=== PATIENT | female | born 1970 | race Caucasian/White ===

== ENCOUNTER 2017-11-11 03:24 | Inpatient (IN) | payer OTHER ==
[~2017-11-11] VITALS: Ht 167.6 cm; Wt 81.6 kg
[2017-11-11 03:32] VITALS: BP 131/67
[2017-11-11] MEDS ORDERED: IBUPROFEN600 MG ORAL (03:32)
[2017-11-11] MEDS ORDERED: TYLENOL650 MG/20. ORAL (03:32)
[2017-11-11] MEDS ORDERED: VITAMIN C500 M1 ORAL (03:32)
--- NOTE | 2017-11-11 03:59 | Emergency Room Report ---
History of Present Illness General Chief Complaint: Edema Source: Patient Present Illness HPI 47-year-old female, history of diabetes, lower extremity edema for one year, presenting with left leg wound. Patient states that she has had a left leg wound for the last 4 months however for the last 2 days became very red, with some wet drainage. Denies any fever chills. States that she has lower show any edema, she was once on water pills, but has not seen a doctor for one year. Allergies: Coded Allergies: AZITHROMYCIN (Verified Allergy, Unknown, 11/11/17) fever, seizure CELECOXIB (Verified Allergy, Unknown, 11/11/17) Heart palpitations CITRUS AND DERIVATIVES (Verified Allergy, Unknown, 11/11/17) uti GABAPENTIN (Verified Allergy, Unknown, 11/11/17) migraine [place] (Verified Allergy, Unknown, Rash, 11/11/17) PREGABALIN (Verified Allergy, Unknown, 11/11/17) migraine [place] (Verified Allergy, Unknown, 11/11/17) hayfever Patient History Past Medical History: see triage record Past Surgical History: none Pertinent Family History: none Last Menstrual Period: 10/03/17 Now: No : 1 Para: 0 Reviewed Nursing Documentation: PMH: Agreed; PSxH: Agreed Nursing Documentation-PMH Hx Asthma: Yes Hx Diabetes: Yes Review of Systems All Other Systems: negative except mentioned in HPI Physical Exam Vital Signs Date Time Temp Pulse Resp B/P (MAP) Pulse Ox O2 Delivery O2 Flow Rate FiO2 11/11/17 03:26 98.5 105 16 131/67 97 Room Air 98.4 Sp02 EP Interpretation: reviewed, normal General Appearance: alert, GCS 15, non-toxic, moderate distress Head: normocephalic, atraumatic Eyes: bilateral eye normal inspection, bilateral eye PERRL, bilateral eye EOMI ENT: normal ENT inspection, normal pharynx, normal voice, moist mucus membranes Neck: normal inspection, full range of motion, supple Respiratory: normal inspection, lungs clear, normal breath sounds, no respiratory distress, no retraction, no wheezing, speaking full sentences, chest symmetrical Cardiovascular #1: normal inspection, regular rate, rhythm, no edema, normal capillary refill Cardiovascular #2: 2+ radial (R), 2+ radial (L) Gastrointestinal: normal inspection, non tender, soft, non-distended, no guarding Musculoskeletal: other - Full range of motion all extremities, 2+ pitting edema bilateral lower extremity, left lower chimney with weeping wet wound on the left anterior tib-fib surface, surrounding erythema, there is no crepitus, equal size of bilateral calves Neurologic: normal inspection, alert, oriented x3, responsive, motor strength/ tone normal, sensory intact, normal gait, speech normal Psychiatric: normal inspection, judgement/insight normal, memory normal Skin: normal inspection, normal color, no rash, warm/dry, well hydrated, normal turgor Medical Decision Making Diagnostic Impression: Primary Impression: Cellulitis ER Course 47-year-old female with left lower extremity redness swelling and wet wound DDX: Cellulitis No crepitus / pain out of proportion / rapid spreading for concern for nec fasc Bilateral lower extremity edema, venous insufficiency, heart failure, less likely to be DVT, equal bilaterally Plan: Labs Antibiotics Anticipate admission ER course: Patient given fluids and antibiotics Disposition: Patient is to be admitted to [facility] D/W hospitalist Dr Lopes Please note that this Emergency Department Report was dictated using [employer] account representative technology software, occasionally this can lead to erroneous entry secondary to interpretation by the dictation equipment. EKG Diagnostic Results EP Interpretation: Yes Rate: normal Rhythm: NSR ST Segments: No acute changes ASA given to patient: No Rhythm Strip EP Interpretation: Yes Rate: 70 Rhythm: NSR, no PVCs, no ectopy Chest X-ray CXR: Ordered: Yes 1 view Indication: PAIN EP interpretation: Yes Interpretation: No consolidation, no effusion, no PTX, no acute cardiopulmonary disease Impression: No acute disease Electronically signed by Nicky Nagy MD Laboratory Tests Test 11/11/17 04:09 11/11/17 05:00 White Blood Count 10.1 K/UL (4.8-10.8) Red Blood Count 4.44 M/UL (4.20-5.40) Hemoglobin 13.4 G/DL (12.0-16.0) Hematocrit 39.0 % (37.0-47.0) Mean Corpuscular Volume 88 FL (80-99) Mean Corpuscular Hemoglobin 30.2 PG (27.0-31.0) Mean Corpuscular Hemoglobin Concent 34.3 G/DL (32.0-36.0) Red Cell Distribution Width 11.4 % (11.6-14.8) L Platelet Count 242 K/UL (150-450) Mean Platelet Volume 5.5 FL (6.5-10.1) L Neutrophils (%) (Auto) 64.4 % (45.0-75.0) Lymphocytes (%) (Auto) 26.7 % (20.0-45.0) Monocytes (%) (Auto) 7.2 % (1.0-10.0) Eosinophils (%) (Auto) 0.5 % (0.0-3.0) Basophils (%) (Auto) 1.3 % (0.0-2.0) Sodium Level 136 MMOL/L (136-145) Potassium Level 3.5 MMOL/L (3.5-5.1) Chloride Level 101 MMOL/L (98-107) Carbon Dioxide Level 28 MMOL/L (21-32) Anion Gap 7 mmol/L (5-15) Blood Urea Nitrogen 6 mg/dL (7-18) L Creatinine 0.7 MG/DL (0.55-1.30) Estimate Glomerular Filtration Rate > 60 mL/min (>60) Glucose Level 102 MG/DL (74-106) Lactic Acid Level 0.90 mmol/L (0.66-2.22) Calcium Level 9.6 MG/DL (8.5-10.1) Total Bilirubin 0.3 MG/DL (0.2-1.0) Aspartate Amino Transferase (AST) 18 U/L (15-37) Alanine Aminotransferase (ALT) 27 U/L (12-78) Alkaline Phosphatase 85 U/L (46-116) Pro-B-Type Natriuretic Peptide 17 pg/mL (0-125) Total Protein 8.0 G/DL (6.4-8.2) Albumin 3.6 G/DL (3.4-5.0) Globulin 4.4 g/dL Albumin/Globulin Ratio 0.8 (1.0-2.7) L Urine Color Pale yellow Urine Appearance Clear Urine pH 6.5 (4.5-8.0) Urine Specific [place] 1.005 (1.005-1.035) Urine Protein Negative (NEGATIVE) Urine Glucose (UA) Negative (NEGATIVE) Urine Ketones Negative (NEGATIVE) Urine Occult Blood 2+ (NEGATIVE) H Urine Nitrite Negative (NEGATIVE) Urine Bilirubin Negative (NEGATIVE) Urine Urobilinogen Normal MG/DL (0.0-1.0) Urine Leukocyte Esterase Negative (NEGATIVE) Urine RBC 5-10 /HPF (0 - 2) H Urine WBC 0-2 /HPF (0 - 2) Urine Squamous Epithelial Cells Few /LPF (NONE/OCC) Urine Bacteria None /HPF (NONE) Last Vital Signs Date Time Temp Pulse Resp B/P (MAP) Pulse Ox O2 Delivery O2 Flow Rate FiO2 11/11/17 03:26 98.5 105 16 131/67 97 Room Air 98.4 Disposition: ADMITTED INPATIENT Condition: Serious Nicky Nagy M.D. Nov 11, 2017 03:59
[2017-11-11] MEDS ORDERED: Vancomycin 1.5gm/D5W 250ml 250 ML IVPB ONE (04:00)
[2017-11-11] MEDS ORDERED: Vancomycin 1gm inj IVPB ONE (04:06)
[2017-11-11] MEDS ORDERED: Vancomycin 500 MG in NS 110 ML IVPB ONE (04:15)
[2017-11-11 04:16] LABS: BASOPHILS % (AUTO) 1.3 % (0.0-2.0); EOSINOPHILS % (AUTO) 0.5 % (0.0-3.0); HEMOGLOBIN 13.4 G/DL (12.0-16.0); LYMPHOCYTES % (AUTO) 26.7 % (20.0-45.0); MEAN CORPUSCULAR VOLUME 88 FL (80-99); MONOCYTES % (AUTO) 7.2 % (1.0-10.0); NEUTROPHILS % (AUTO) 64.4 % (45.0-75.0); PLATELET COUNT 242 K/UL (150-450); RED BLOOD COUNT 4.44 M/UL (4.20-5.40); RED CELL DISTRIBUTION WIDTH 11.4 % (11.6-14.8); WHITE BLOOD COUNT 10.1 K/UL (4.8-10.8)
[2017-11-11 04:28] LABS: ANION GAP 7 mmol/L (5-15); BLOOD UREA NITROGEN 6 mg/dL (7-18); CALCIUM 9.6 MG/DL (8.5-10.1); CARBON DIOXIDE 28 MMOL/L (21-32); CHLORIDE 101 MMOL/L (98-107); CREATININE 0.7 MG/DL (0.55-1.30); POTASSIUM 3.5 MMOL/L (3.5-5.1); SODIUM 136 MMOL/L (136-145)
[2017-11-11 04:39] LABS: ALANINE AMINOTRANSFERASE 27 U/L (12-78); ALBUMIN 3.6 G/DL (3.4-5.0); ALBUMIN/GLOBULIN RATIO 0.8 (1.0-2.7); ALKALINE PHOSPHATASE 85 U/L (46-116); ASPARTATE AMINO TRANSFERASE 18 U/L (15-37); BILIRUBIN,TOTAL 0.3 MG/DL (0.2-1.0)
[2017-11-11 05:09] LABS: APPEARANCE,URINE CLEAR; BILIRUBIN, URINE NEGATIVE (NEGATIVE); COLOR,URINE PALE YELLOW; GLUCOSE, URINE (UA) NEGATIVE (NEGATIVE); KETONES,URINE NEGATIVE (NEGATIVE); LEUKOCYTE ESTERASE ,URINE NEGATIVE (NEGATIVE); NITRITE,URINE NEGATIVE (NEGATIVE); PH,URINE 6.5 (4.5-8.0); PROTEIN,URINE NEGATIVE (NEGATIVE); UROBILINOGEN,URINE NORMAL MG/DL (0.0-1.0)
[2017-11-11] MEDS ORDERED: Morphine Sulfate 4mg/ml Inj IVP ONE (05:15)
[2017-11-11 05:30] VITALS: BP 123/77
[2017-11-11] MEDS ORDERED: MULTIVITAMINS1 EAC2 ORAL (06:26)
[2017-11-11] MEDS ORDERED: Miralax 17gm pkt ORAL PRN (07:30)
[2017-11-11] MEDS ORDERED: Morphine Sulfate 2mg/ml Inj IVP PRN (07:30)
[2017-11-11] MEDS ORDERED: Albuterol/Ipratropium 3ml neb HHN PRN (07:30)
[2017-11-11] MEDS ORDERED: Nitroglycerin Subl 0.4mg tab SL PRN (07:30)
[2017-11-11 08:00] VITALS: BP 113/73
[2017-11-11] MEDS: Cefepime HCl 2 GM in D5W 110 ML IV SCH ×2 (10:39→20:30)
[2017-11-11] MEDS: Heparin 5000 units/ml inj SUBQ SCH ×2 (10:41→20:30)
--- NOTE | 2017-11-11 11:25 | Diagnostic Imaging Report ---
Indication: Chest pain Technique: One view of the chest Comparison: none Findings: Lungs and pleural spaces are clear. Heart size is normal Impression: No acute process
[2017-11-11 11:48] VITALS: BP 127/70
[2017-11-11] MEDS: Morphine Sulfate 4mg/ml Inj IVP PRN ×3 (13:57→20:39)
[2017-11-11] MEDS: Vancomycin 1250mg/D5W 250ml IVPB SCH (14:01)
[2017-11-11 15:36] VITALS: BP 122/70
--- NOTE | 2017-11-11 17:45 | Consultation ---
History of Present Illness General Date patient seen: Nov 11, 2017 Chief Complaint: Edema Present Illness HPI 47-year-old female, history of diabetes, COPD, morbid obesity lower extremity edema for one year, presenting with left leg wound. Patient states that she has had a left leg wound for the last 4 months however for the last 2 days became very red, with some wet drainage. Denies any fever chills. States that she has lower show any edema, she was once on water pills, but has not seen a doctor for one year. Allergies: Coded Allergies: AZITHROMYCIN (Verified Allergy, Unknown, 11/11/17) fever, seizure CELECOXIB (Verified Allergy, Unknown, 11/11/17) Heart palpitations CITRUS AND DERIVATIVES (Verified Allergy, Unknown, 11/11/17) uti GABAPENTIN (Verified Allergy, Unknown, 11/11/17) migraine LATEX (Verified Allergy, Unknown, Rash, 11/11/17) PREGABALIN (Verified Allergy, Unknown, 11/11/17) migraine [place] (Verified Allergy, Unknown, 11/11/17) hayfever Medication History Scheduled Ascorbic Acid* (Vitamin C*), 500 MG ORAL DAILY, (Reported) Ibuprofen* (Motrin*), 600 MG ORAL FOUR TIMES A DAY, (Reported) Multivitamins* (Multivitamins*), 1 TAB ORAL DAILY, (Reported) Scheduled PRN Acetaminophen (Acetaminophen), 650 MG ORAL Q6H PRN for Prn Headache/Temp > 101, (Reported) Patient History Healthcare decision maker Resuscitation status Full Code Advanced Directive on File Past Medical/Surgical History Past Medical/Surgical History: (1) COPD (chronic obstructive pulmonary disease) (2) Diabetes mellitus Review of Systems All Other Systems: negative except mentioned in HPI Physical Exam General Appearance: WD/WN, overweight Lines, tubes and drains: peripheral HEENT: normocephalic Neck: non-tender Respiratory/Chest: chest wall non-tender, lungs clear Abdomen: normal bowel sounds Extremities: inflammation, moderate edema, pitting Neurologic: shear helper II-XII grossly normal, abnormal gait Last 24 Hour Vital Signs Date Time Temp Pulse Resp B/P (MAP) Pulse Ox O2 Delivery O2 Flow Rate FiO2 11/11/17 15:36 98.4 97 18 122/70 98 98.4 11/11/17 11:48 100.8 112 18 127/70 96 100.8 11/11/17 11:48 Room Air 11/11/17 08:00 Room Air 11/11/17 08:00 97.5 99 18 113/73 100 97.5 11/11/17 05:50 98.4 89 16 123/77 99 Room Air 209.1 11/11/17 05:30 89 16 123/77 99 Room Air 11/11/17 05:24 98.4 11/11/17 03:32 105 16 Room Air 11/11/17 03:32 98.4 16 131/67 97 Room Air 98.4 11/11/17 03:26 98.5 105 16 131/67 97 Room Air 98.4 Intake and Output 11/10/17 11/11/17 19:00 07:00 Intake Total 0 ml Balance 0 ml Intake Oral 0 ml Laboratory Tests Test 11/11/17 04:09 11/11/17 05:00 White Blood Count 10.1 K/UL (4.8-10.8) Red Blood Count 4.44 M/UL (4.20-5.40) Hemoglobin 13.4 G/DL (12.0-16.0) Hematocrit 39.0 % (37.0-47.0) Mean Corpuscular Volume 88 FL (80-99) Mean Corpuscular Hemoglobin 30.2 PG (27.0-31.0) Mean Corpuscular Hemoglobin Concent 34.3 G/DL (32.0-36.0) Red Cell Distribution Width 11.4 % (11.6-14.8) L Platelet Count 242 K/UL (150-450) Mean Platelet Volume 5.5 FL (6.5-10.1) L Neutrophils (%) (Auto) 64.4 % (45.0-75.0) Lymphocytes (%) (Auto) 26.7 % (20.0-45.0) Monocytes (%) (Auto) 7.2 % (1.0-10.0) Eosinophils (%) (Auto) 0.5 % (0.0-3.0) Basophils (%) (Auto) 1.3 % (0.0-2.0) Sodium Level 136 MMOL/L (136-145) Potassium Level 3.5 MMOL/L (3.5-5.1) Chloride Level 101 MMOL/L (98-107) Carbon Dioxide Level 28 MMOL/L (21-32) Anion Gap 7 mmol/L (5-15) Blood Urea Nitrogen 6 mg/dL (7-18) L Creatinine 0.7 MG/DL (0.55-1.30) Estimat Glomerular Filtration Rate > 60 mL/min (>60) Glucose Level 102 MG/DL (74-106) Lactic Acid Level 0.90 mmol/L (0.66-2.22) Calcium Level 9.6 MG/DL (8.5-10.1) Total Bilirubin 0.3 MG/DL (0.2-1.0) Aspartate Amino Transf (AST/SGOT) 18 U/L (15-37) Alanine Aminotransferase (ALT/SGPT) 27 U/L (12-78) Alkaline Phosphatase 85 U/L (46-116) Pro-B-Type Natriuretic Peptide 17 pg/mL (0-125) Total Protein 8.0 G/DL (6.4-8.2) Albumin 3.6 G/DL (3.4-5.0) Globulin 4.4 g/dL Albumin/Globulin Ratio 0.8 (1.0-2.7) L Urine Color Pale yellow Urine Appearance Clear Urine pH 6.5 (4.5-8.0) Urine Specific [place] 1.005 (1.005-1.035) Urine Protein Negative (NEGATIVE) Urine Glucose (UA) Negative (NEGATIVE) Urine Ketones Negative (NEGATIVE) Urine Occult Blood 2+ (NEGATIVE) H Urine Nitrite Negative (NEGATIVE) Urine Bilirubin Negative (NEGATIVE) Urine Urobilinogen Normal MG/DL (0.0-1.0) Urine Leukocyte Esterase Negative (NEGATIVE) Urine RBC 5-10 /HPF (0 - 2) H Urine WBC 0-2 /HPF (0 - 2) Urine Squamous Epithelial Cells Few /LPF (NONE/OCC) Urine Bacteria None /HPF (NONE) Height (Feet): 5 Height (Inches): 6.00 Weight (Pounds): 180 Medications Current Medications Medications (Trade) Dose Ordered Sig/Jaye Route PRN Reason Start Time Stop Time Status Last Admin Dose Admin Acetaminophen (Tylenol) 650 mg Q4H PRN ORAL fever 11/11/17 07:30 12/11/17 07:29 Albuterol/ Ipratropium (Albuterol/ Ipratropium) 3 ml EVERY 4 HOURS PRN HHN Shortness of Breath 11/11/17 07:30 11/16/17 07:29 Cefepime HCl 2 gm/ Dextrose 110 ml @ 220 mls/hr EVERY 12 HOURS IV 11/11/17 09:00 11/18/17 08:59 11/11/17 10:39 Dextrose (Dextrose 50%) STAT PRN IV Hypoglycemia 11/11/17 07:30 12/11/17 07:29 Heparin Sodium (Porcine) (Heparin 5000 units/ml) 5,000 units EVERY 12 HOURS SUBQ 11/11/17 09:00 12/11/17 08:59 11/11/17 10:41 Morphine Sulfate (Morphine Sulfate) 2 mg EVERY 4 HOURS PRN IVP Moderate Pain (Pain Scale 4-6) 11/11/17 13:15 11/18/17 07:29 11/11/17 13:57 Nitroglycerin (Ntg) 0.4 mg Q5M PRN SL Prn Chest Pain 11/11/17 07:30 12/11/17 07:29 Ondansetron HCl (Zofran) 4 mg Q6H PRN IVP Nausea & Vomiting 11/11/17 07:30 12/11/17 07:29 Polyethylene Glycol (Miralax) 17 gm DAILYPRN PRN ORAL Constipation 11/11/17 07:30 12/11/17 07:29 Temazepam (Restoril) 15 mg HSPRN PRN ORAL Insomnia 11/11/17 07:30 11/18/17 07:29 Vancomycin HCl (Vanco rx to dose) 1 ea DAILY PRN MISC Per rx protocol 11/11/17 07:45 12/11/17 07:44 Vancomycin HCl/ Dextrose 250 ml @ 166.667 mls/hr Q12H IVPB 11/11/17 14:00 11/16/17 13:59 11/11/17 14:01 Assessment/Plan Problem List: (1) Cellulitis ICD Codes: L03.90 - Cellulitis, unspecified SNOMED: 743521816 Qualifiers: Qualified Codes: L03.119 - Cellulitis of unspecified part of limb (2) COPD (chronic obstructive pulmonary disease) ICD Codes: J44.9 - Chronic obstructive pulmonary disease, unspecified SNOMED: 51261067 (3) Diabetes mellitus ICD Codes: E11.9 - Type 2 diabetes mellitus without complications SNOMED: 37133319 Assessment/Plan iv abx wound care check cultures sliding scale diabetic diet. Rosy Rocha MD Nov 11, 2017 17:45
--- NOTE | 2017-11-11 19:02 | History & Physical ---
History and Physical History & Physicial Dictated for Int Med-Dr Lopes no. [id number]. AYUSH POWELL Nov 11, 2017 19:02
[2017-11-11 20:00] VITALS: BP 125/68
--- NOTE | 2017-11-11 20:30 | History and Physical Report ---
DATE OF ADMISSION: 11/11/2017 CHIEF COMPLAINT: The patient is a 47-year-old white female who presents with chief complaint of swollen and reddened left leg. HISTORY OF PRESENT ILLNESS: Began around the holidays, the patient began to have swelling of the left leg. The patient then scratched her leg at [place] time. The patient states her leg has became increasingly red and swollen since that time. The patient has not seen private physician since that time. The patient states she had previous MRSA from a spider bite on the same leg in 2008. The patient presents to [place] emergency room complaining of an approximate three month history of left lower leg swelling and edema. It is now erythematous and has a crusty scaling appearance to it. The patient is admitted for left lower extremity cellulitis. REVIEW OF SYSTEMS: CONSTITUTIONAL: The patient denies weight loss or gain. The patient denies fevers or chills. HEENT: The patient denies ear or throat pain. The patient denies headache. CARDIOVASCULAR: The patient denies palpitations or chest pain. CHEST: The patient denies wheeze or shortness of breath. ABDOMINAL: The patient denies nausea, vomiting, diarrhea, or constipation. GENITOURINARY: The patient denies dysuria or increased frequency of urination. NEUROMUSCULAR: The patient denies seizures or generalized weakness. The patient does complain of edema and swelling of the left lower extremity as above. PAST MEDICAL HISTORY: Significant for: 1. Diabetes type 2, however, the patient is not on any medications. 2. Chronic obstructive pulmonary disease. 3. Methicillin-resistant Staph aureus of the left leg in 2008. PAST SURGICAL HISTORY: Significant for: 1. Lymph resection of the right groin secondary to cat scratch fever. 2. Uterine myomectomy secondary to fibroid tumors. CURRENT MEDICATIONS: The patient denies. ALLERGIES: 1. AZITHROMYCIN. 2. ERYTHROMYCIN. 3. CELEBREX. 4. GABAPENTIN. 5. PREGABALIN. SOCIAL HISTORY: The patient is , however has a current boyfriend. The patient admits to tobacco use one pack per day. The patient denies alcohol use. PHYSICAL EXAMINATION: VITAL SIGNS: Temperature 98.4, respirations 16, pulse 89, blood pressure 123/77. GENERAL: The patient is well-developed and well-nourished white female, in no apparent distress. HEENT: Pupils are equal and responsive to light and accommodation. Extraocular movements are intact. NECK: Supple. No lymphadenopathy. CHEST: Lungs are clear to auscultation bilaterally without wheezes or rales. CARDIOVASCULAR: Regular rate. S1 and S2 are normal without murmurs, rubs, or gallops. ABDOMEN: Soft, nontender, and nondistended. Positive bowel sounds. No evidence of hepatosplenomegaly. Currently, no rebound or guarding noted. EXTREMITIES: Negative for clubbing, cyanosis, or edema. Left lower extremity has a scaling scabby appearance with yellowish discharge. There is erythema about the entire anterior portion of the lower extremity. RECTAL/GENITAL: Refused. NEUROLOGIC: Cranial nerves II to XII are grossly intact without focal deficits. Motor strength is 5/5 bilaterally. Deep tendon reflexes are 2+ plantar. LABORATORY STUDIES: WBC 10.1, hemoglobin 13.4, hematocrit 39.0, platelets 242,000. Sodium 136, potassium 3.5, chloride 101, CO2 28, BUN 6, creatinine 0.7, glucose 102. ASSESSMENT: This is a 47-year-old white female: 1. Edema of the left lower extremity. 2. Cellulitis of the left lower extremity. 3. Diabetes type 2. TREATMENT: 1. Cellulitis/edema of the left lower extremity. An Infectious Diseases consultation has been obtained with Dr. Osei. The patient has been started empirically on vancomycin and cefepime. Blood cultures are pending. We will follow recommendations of Infectious Diseases. 2. Diabetes type 2. The patient's initial blood glucose was within normal limits. Accu-Cheks will be performed before meals and at bedtime. A regular insulin sliding scale has been instituted. Rico Tavera M.D. DR: Bright JOB#: [id number] CC:
[2017-11-12] VITALS: BP 120/77
[2017-11-12] MEDS ORDERED: Vancomycin 1 GM in D5W 275 ML IV SCH (00:30)
[2017-11-12] MEDS: Morphine Sulfate 4mg/ml Inj IVP PRN ×3 (03:08→13:57)
[2017-11-12] MEDS: Vancomycin 1250mg/D5W 250ml IVPB SCH ×2 (03:08→13:55)
[2017-11-12 04:00] VITALS: BP 102/68
[2017-11-12 07:12] LABS: BASOPHILS % (AUTO) 1.1 % (0.0-2.0); EOSINOPHILS % (AUTO) 0.9 % (0.0-3.0); HEMATOCRIT 34.6 % (37.0-47.0); HEMOGLOBIN 11.9 G/DL (12.0-16.0); LYMPHOCYTES % (AUTO) 38.4 % (20.0-45.0); MEAN CORPUSCULAR VOLUME 89 FL (80-99); MONOCYTES % (AUTO) 7.1 % (1.0-10.0); NEUTROPHILS % (AUTO) 52.4 % (45.0-75.0); PLATELET COUNT 204 K/UL (150-450); RED BLOOD COUNT 3.87 M/UL (4.20-5.40); WHITE BLOOD COUNT 9.6 K/UL (4.8-10.8)
[2017-11-12 07:30] LABS: ALANINE AMINOTRANSFERASE 24 U/L (12-78); ALBUMIN/GLOBULIN RATIO 0.8 (1.0-2.7); ALKALINE PHOSPHATASE 72 U/L (46-116); ANION GAP 5 mmol/L (5-15); ASPARTATE AMINO TRANSFERASE 15 U/L (15-37); BILIRUBIN,TOTAL 0.4 MG/DL (0.2-1.0); BLOOD UREA NITROGEN 7 mg/dL (7-18); CALCIUM 9.3 MG/DL (8.5-10.1); CARBON DIOXIDE 28 MMOL/L (21-32); CHLORIDE 105 MMOL/L (98-107); CREATININE 0.5 MG/DL (0.55-1.30); POTASSIUM 3.8 MMOL/L (3.5-5.1); SODIUM 138 MMOL/L (136-145)
[2017-11-12 08:15] VITALS: BP 103/59
[2017-11-12] MEDS: Cefepime HCl 2 GM in D5W 110 ML IV SCH ×2 (08:23→20:30)
[2017-11-12] MEDS: Heparin 5000 units/ml inj SUBQ SCH ×2 (08:24→20:27)
--- NOTE | 2017-11-12 11:41 | Consultation ---
History of Present Illness General Date patient seen: Nov 12, 2017 Chief Complaint: Edema Reason for Consultation: lower extremity wounds and cellulitis Present Illness HPI 47 year old female presented with worsening bilateral L>R lower extremity pain, swelling, wounds. States that for the past two years she has had edema/swelling , pain, and redness in her bilateral lower extremities below knee around calfs. Has been having pain and discoloration of foot and toes. Approximately 4 months ago began to note wounds on left leg circumferentially and would scratch wounds making them worse. She states she has poor wound care and hygiene wound wounds. does not keep them covered and allows them to get wet outdoors. Recently she began to note drainage from wounds and worsening edema so she came to ED for evaluation. No n/v/f/c. States she has history of type II DM and does not have any meds or care for her DM. She is a poor historian and states that despite medical problems and chronic condition she has not seen medical care for years. Surgery called to evaluate wounds and help with management, debridement, and care. Allergies: Coded Allergies: AZITHROMYCIN (Verified Allergy, Unknown, 11/11/17) fever, seizure CELECOXIB (Verified Allergy, Unknown, 11/11/17) Heart palpitations CITRUS AND DERIVATIVES (Verified Allergy, Unknown, 11/11/17) uti GABAPENTIN (Verified Allergy, Unknown, 11/11/17) migraine LATEX (Verified Allergy, Unknown, Rash, 11/11/17) PREGABALIN (Verified Allergy, Unknown, 11/11/17) migraine [place] (Verified Allergy, Unknown, 11/11/17) hayfever Medication History Scheduled Ascorbic Acid* (Vitamin C*), 500 MG ORAL DAILY, (Reported) Ibuprofen* (Motrin*), 600 MG ORAL FOUR TIMES A DAY, (Reported) Multivitamins* (Multivitamins*), 1 TAB ORAL DAILY, (Reported) Scheduled PRN Acetaminophen (Acetaminophen), 650 MG ORAL Q6H PRN for Prn Headache/Temp > 101, (Reported) Patient History History Provided By: Patient, Medical Record, PMD Healthcare decision maker Resuscitation status Full Code Advanced Directive on File Past Medical/Surgical History Past Medical/Surgical History: (1) Cellulitis Review of Systems All Other Systems: negative except mentioned in HPI Physical Exam General Appearance: no apparent distress, alert Lines, tubes and drains: peripheral HEENT: normocephalic, mucous membranes moist Neck: supple Respiratory/Chest: lungs clear, normal breath sounds, no respiratory distress, no accessory muscle use Cardiovascular/Chest: normal rate, other - decreased bilateral lower extremity pulses below femoral Abdomen: non tender, soft, no organomegaly, no mass Extremities: calf tenderness, inflammation, slow capillary refill, moderate edema, other - poor distal pulses, large circ wound in left leg, small multiple wounds in right leg. serous drainage noted. Neurologic: alert, oriented x 3 Last 24 Hour Vital Signs Date Time Temp Pulse Resp B/P (MAP) Pulse Ox O2 Delivery O2 Flow Rate FiO2 11/12/17 08:56 97.9 11/12/17 08:26 97.9 11/12/17 08:15 97.9 87 20 103/59 97 97.9 11/12/17 04:00 97.9 79 19 102/68 98 97.9 11/12/17 00:00 99.1 88 17 120/77 96 99.1 11/11/17 20:31 98.4 11/11/17 20:00 98.6 82 16 125/68 97 98.6 11/11/17 15:36 Room Air 11/11/17 15:36 98.4 97 18 122/70 98 98.4 11/11/17 11:48 100.8 112 18 127/70 96 100.8 11/11/17 11:48 Room Air Intake and Output 11/11/17 11/12/17 19:00 07:00 Intake Total 920 ml 2760.000 ml Balance 920 ml 2760.000 ml Intake Oral 920 ml 2400 ml IV Total 360.000 ml # Voids 3 6 Laboratory Tests Test 11/12/17 05:30 White Blood Count 9.6 K/UL (4.8-10.8) Red Blood Count 3.87 M/UL (4.20-5.40) L Hemoglobin 11.9 G/DL (12.0-16.0) L Hematocrit 34.6 % (37.0-47.0) L Mean Corpuscular Volume 89 FL (80-99) Mean Corpuscular Hemoglobin 30.9 PG (27.0-31.0) Mean Corpuscular Hemoglobin Concent 34.6 G/DL (32.0-36.0) Red Cell Distribution Width 11.0 % (11.6-14.8) L Platelet Count 204 K/UL (150-450) Mean Platelet Volume 5.4 FL (6.5-10.1) L Neutrophils (%) (Auto) 52.4 % (45.0-75.0) Lymphocytes (%) (Auto) 38.4 % (20.0-45.0) Monocytes (%) (Auto) 7.1 % (1.0-10.0) Eosinophils (%) (Auto) 0.9 % (0.0-3.0) Basophils (%) (Auto) 1.1 % (0.0-2.0) Sodium Level 138 MMOL/L (136-145) Potassium Level 3.8 MMOL/L (3.5-5.1) Chloride Level 105 MMOL/L (98-107) Carbon Dioxide Level 28 MMOL/L (21-32) Anion Gap 5 mmol/L (5-15) Blood Urea Nitrogen 7 mg/dL (7-18) Creatinine 0.5 MG/DL (0.55-1.30) L Estimat Glomerular Filtration Rate > 60 mL/min (>60) Glucose Level 91 MG/DL (74-106) Calcium Level 9.3 MG/DL (8.5-10.1) Total Bilirubin 0.4 MG/DL (0.2-1.0) Aspartate Amino Transf (AST/SGOT) 15 U/L (15-37) Alanine Aminotransferase (ALT/SGPT) 24 U/L (12-78) Alkaline Phosphatase 72 U/L (46-116) Total Protein 7.0 G/DL (6.4-8.2) Albumin 3.0 G/DL (3.4-5.0) L Globulin 4.0 g/dL Albumin/Globulin Ratio 0.8 (1.0-2.7) L Height (Feet): 5 Height (Inches): 6.00 Weight (Pounds): 180 Medications Current Medications Medications (Trade) Dose Ordered Sig/Jaye Route PRN Reason Start Time Stop Time Status Last Admin Dose Admin Acetaminophen (Tylenol) 650 mg Q4H PRN ORAL fever 11/11/17 07:30 12/11/17 07:29 Albuterol/ Ipratropium (Albuterol/ Ipratropium) 3 ml EVERY 4 HOURS PRN HHN Shortness of Breath 11/11/17 07:30 11/16/17 07:29 Cefepime HCl 2 gm/ Dextrose 110 ml @ 220 mls/hr EVERY 12 HOURS IV 11/11/17 09:00 11/18/17 08:59 11/12/17 08:23 Dextrose (Dextrose 50%) STAT PRN IV Hypoglycemia 11/11/17 07:30 12/11/17 07:29 Heparin Sodium (Porcine) (Heparin 5000 units/ml) 5,000 units EVERY 12 HOURS SUBQ 11/11/17 09:00 12/11/17 08:59 11/12/17 08:24 Morphine Sulfate (Morphine Sulfate) 2 mg EVERY 4 HOURS PRN IVP Moderate Pain (Pain Scale 4-6) 11/11/17 13:15 11/18/17 07:29 11/12/17 08:26 Nitroglycerin (Ntg) 0.4 mg Q5M PRN SL Prn Chest Pain 11/11/17 07:30 12/11/17 07:29 Ondansetron HCl (Zofran) 4 mg Q6H PRN IVP Nausea & Vomiting 11/11/17 07:30 12/11/17 07:29 Polyethylene Glycol (Miralax) 17 gm DAILYPRN PRN ORAL Constipation 11/11/17 07:30 12/11/17 07:29 Temazepam (Restoril) 15 mg HSPRN PRN ORAL Insomnia 11/11/17 07:30 11/18/17 07:29 Vancomycin HCl (Vanco rx to dose) 1 ea DAILY PRN MISC Per rx protocol 11/11/17 07:45 12/11/17 07:44 Vancomycin HCl/ Dextrose 250 ml @ 166.667 mls/hr Q12H IVPB 11/11/17 14:00 11/16/17 13:59 11/12/17 03:08 Assessment/Plan Problem List: (1) Cellulitis Assessment & Plan: 47F with acute on chronic lower extremity cellulitis with large wounds that she has not cared for in some time. cellulitis worse on Left with dependant edema. toes with chronic skin changes consistent with ischemic peripheral disease. does not seem like fascitis but will need to monitor -continue with wound care, clean wound, apply Xeroform, apply dressings. -IV Abx -Keep lower extremities elevated -okay for diet. -arterial and venous duplex studies bilateral lower extremity. -will monitor wounds for possible debridement as needed thank you for this consultation. will follow with recs. ICD Codes: L03.90 - Cellulitis, unspecified SNOMED: [id number] Qualifiers: Qualified Codes: L03.119 - Cellulitis of unspecified part of limb Status: stable Cuco Richards Nov 12, 2017 11:41
[2017-11-12 12:03] VITALS: BP 117/57
[2017-11-12] MEDS ORDERED: NS Irrig 1000ml ONE (14:59)
[2017-11-12 15:45] VITALS: BP 97/52
--- NOTE | 2017-11-12 15:48 | Internal Med Progress Note ---
Subjective Date of Service: Nov 12, 2017 Physician Name Rico Powell Attending Physician King Lopes MD Current Medications Medications (Trade) Dose Ordered Sig/Jaye Route PRN Reason Start Time Stop Time Status Last Admin Dose Admin Acetaminophen (Tylenol) 650 mg Q4H PRN ORAL fever 11/11/17 07:30 12/11/17 07:29 Albuterol/ Ipratropium (Albuterol/ Ipratropium) 3 ml EVERY 4 HOURS PRN HHN Shortness of Breath 11/11/17 07:30 11/16/17 07:29 Cefepime HCl 2 gm/ Dextrose 110 ml @ 220 mls/hr EVERY 12 HOURS IV 11/11/17 09:00 11/18/17 08:59 11/12/17 08:23 Dextrose (Dextrose 50%) STAT PRN IV Hypoglycemia 11/11/17 07:30 12/11/17 07:29 Heparin Sodium (Porcine) (Heparin 5000 units/ml) 5,000 units EVERY 12 HOURS SUBQ 11/11/17 09:00 12/11/17 08:59 11/12/17 08:24 Morphine Sulfate (Morphine Sulfate) 2 mg EVERY 4 HOURS PRN IVP Moderate Pain (Pain Scale 4-6) 11/11/17 13:15 11/18/17 07:29 11/12/17 13:57 Nitroglycerin (Ntg) 0.4 mg Q5M PRN SL Prn Chest Pain 11/11/17 07:30 12/11/17 07:29 Ondansetron HCl (Zofran) 4 mg Q6H PRN IVP Nausea & Vomiting 11/11/17 07:30 12/11/17 07:29 Polyethylene Glycol (Miralax) 17 gm DAILYPRN PRN ORAL Constipation 11/11/17 07:30 12/11/17 07:29 Temazepam (Restoril) 15 mg HSPRN PRN ORAL Insomnia 11/11/17 07:30 11/18/17 07:29 Vancomycin HCl (Vanco rx to dose) 1 ea DAILY PRN MISC Per rx protocol 11/11/17 07:45 12/11/17 07:44 Vancomycin HCl/ Dextrose 250 ml @ 166.667 mls/hr Q12H IVPB 11/11/17 14:00 11/16/17 13:59 11/12/17 13:55 Allergies: Coded Allergies: AZITHROMYCIN (Verified Allergy, Unknown, 11/11/17) fever, seizure CELECOXIB (Verified Allergy, Unknown, 11/11/17) Heart palpitations CITRUS AND DERIVATIVES (Verified Allergy, Unknown, 11/11/17) uti GABAPENTIN (Verified Allergy, Unknown, 11/11/17) migraine LATEX (Verified Allergy, Unknown, Rash, 11/11/17) PREGABALIN (Verified Allergy, Unknown, 11/11/17) migraine [place] (Verified Allergy, Unknown, 11/11/17) hayfever ROS Limited/Unobtainable: No Constitutional: Reports: no symptoms HEENT: Reports: no symptoms Cardiovascular: Reports: no symptoms Respiratory: Reports: no symptoms Gastrointestinal/Abdominal: Reports: no symptoms Genitourinary: Reports: no symptoms Neurologic/Psychiatric: Reports: no symptoms Subjective 47 YO F admitted with left leg pain. Now cellulitis left leg. Cover for Int Med-Dr Lopes Objective Last Vital Signs Date Time Temp Pulse Resp B/P (MAP) Pulse Ox O2 Delivery O2 Flow Rate FiO2 11/12/17 13:57 97.7 11/12/17 12:03 82 20 117/57 98 11/11/17 15:36 Room Air General Appearance: WD/WN, no apparent distress, alert EENT: PERRL/EOMI, normal ENT inspection, TMs normal Neck: non-tender, normal alignment, supple Cardiovascular: normal peripheral pulses, normal rate, regular rhythm, no gallop/murmur, no JVD Respiratory/Chest: chest wall non-tender, lungs clear, normal breath sounds, no respiratory distress, no accessory muscle use Abdomen: normal bowel sounds, non tender, soft, no organomegaly, no mass, abnormal bowel sounds Extremities: other - crusty lesion left leg Edema: trace edema 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 II-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 grossly normal Skin: normal pigmentation Laboratory Tests Test 11/12/17 05:30 White Blood Count 9.6 K/UL (4.8-10.8) Red Blood Count 3.87 M/UL (4.20-5.40) L Hemoglobin 11.9 G/DL (12.0-16.0) L Hematocrit 34.6 % (37.0-47.0) L Mean Corpuscular Volume 89 FL (80-99) Mean Corpuscular Hemoglobin 30.9 PG (27.0-31.0) Mean Corpuscular Hemoglobin Concent 34.6 G/DL (32.0-36.0) Red Cell Distribution Width 11.0 % (11.6-14.8) L Platelet Count 204 K/UL (150-450) Mean Platelet Volume 5.4 FL (6.5-10.1) L Neutrophils (%) (Auto) 52.4 % (45.0-75.0) Lymphocytes (%) (Auto) 38.4 % (20.0-45.0) Monocytes (%) (Auto) 7.1 % (1.0-10.0) Eosinophils (%) (Auto) 0.9 % (0.0-3.0) Basophils (%) (Auto) 1.1 % (0.0-2.0) Sodium Level 138 MMOL/L (136-145) Potassium Level 3.8 MMOL/L (3.5-5.1) Chloride Level 105 MMOL/L (98-107) Carbon Dioxide Level 28 MMOL/L (21-32) Anion Gap 5 mmol/L (5-15) Blood Urea Nitrogen 7 mg/dL (7-18) Creatinine 0.5 MG/DL (0.55-1.30) L Estimat Glomerular Filtration Rate > 60 mL/min (>60) Glucose Level 91 MG/DL (74-106) Hemoglobin A1c 5.0 % (4.3-6.0) Calcium Level 9.3 MG/DL (8.5-10.1) Total Bilirubin 0.4 MG/DL (0.2-1.0) Aspartate Amino Transf (AST/SGOT) 15 U/L (15-37) Alanine Aminotransferase (ALT/SGPT) 24 U/L (12-78) Alkaline Phosphatase 72 U/L (46-116) Total Protein 7.0 G/DL (6.4-8.2) Albumin 3.0 G/DL (3.4-5.0) L Globulin 4.0 g/dL Albumin/Globulin Ratio 0.8 (1.0-2.7) L Microbiology Date/Time Source Procedure Growth Status 11/11/17 07:00 Wound Gram Stain - Final Resulted 11/11/17 07:00 Wound Wound Culture - Preliminary Resulted Intake and Output 11/11/17 11/12/17 19:00 07:00 Intake Total 920 ml 2760.000 ml Balance 920 ml 2760.000 ml Intake Oral 920 ml 2400 ml IV Total 360.000 ml # Voids 3 6 Assessment/Plan Problem List: (1) Left leg cellulitis Assessment & Plan: Continue vanco and cefepime per ID (2) Edema (3) Diabetes mellitus (4) COPD (chronic obstructive pulmonary disease) Status: not improved RICO POWELL Nov 12, 2017 15:47
--- NOTE | 2017-11-12 17:52 | Pulmonology Progress Note ---
Assessment/Plan Problems: (1) Diabetes mellitus (2) COPD (chronic obstructive pulmonary disease) (3) Cellulitis Assessment/Plan iv abx wound care f/u ID and surgeon recommendations. Subjective ROS Limited/Unobtainable: No Constitutional: Reports: no symptoms HEENT: Repors: no symptoms Allergies: Coded Allergies: AZITHROMYCIN (Verified Allergy, Unknown, 11/11/17) fever, seizure CELECOXIB (Verified Allergy, Unknown, 11/11/17) Heart palpitations CITRUS AND DERIVATIVES (Verified Allergy, Unknown, 11/11/17) uti GABAPENTIN (Verified Allergy, Unknown, 11/11/17) migraine LATEX (Verified Allergy, Unknown, Rash, 11/11/17) PREGABALIN (Verified Allergy, Unknown, 11/11/17) migraine [place] (Verified Allergy, Unknown, 11/11/17) hayfever Objective Last 24 Hour Vital Signs Date Time Temp Pulse Resp B/P (MAP) Pulse Ox O2 Delivery O2 Flow Rate FiO2 11/12/17 15:45 98.0 71 20 97/52 99 98.0 11/12/17 14:27 98.0 11/12/17 13:57 97.7 11/12/17 12:03 97.7 82 20 117/57 98 97.7 11/12/17 08:26 97.9 11/12/17 08:15 97.9 87 20 103/59 97 97.9 11/12/17 04:00 97.9 79 19 102/68 98 97.9 11/12/17 00:00 99.1 88 17 120/77 96 99.1 11/11/17 20:31 98.4 11/11/17 20:00 98.6 82 16 125/68 97 98.6 Intake and Output 11/11/17 11/12/17 19:00 07:00 Intake Total 920 ml 2760.000 ml Balance 920 ml 2760.000 ml Intake Oral 920 ml 2400 ml IV Total 360.000 ml # Voids 3 6 General Appearance: WD/WN Respiratory/Chest: chest wall non-tender, lungs clear Cardiovascular: normal peripheral pulses, regular rhythm, no JVD Abdomen: normal bowel sounds, no organomegaly Skin: lesions - extensive bullous/keratotic lesions in lower extremities Microbiology Date/Time Source Procedure Growth Status 11/11/17 07:00 Wound Gram Stain - Final Resulted 11/11/17 07:00 Wound Wound Culture - Preliminary Resulted Laboratory Tests 11/12/17 05:30: White Blood Count 9.6, Red Blood Count 3.87L, Hemoglobin 11.9L, Hematocrit 34.6L , Mean Corpuscular Volume 89, Mean Corpuscular Hemoglobin 30.9, Mean Corpuscular Hemoglobin Concent 34.6, Red Cell Distribution Width 11.0L, Platelet Count 204, Mean Platelet Volume 5.4L, Neutrophils (%) (Auto) 52.4, Lymphocytes (%) (Auto) 38.4, Monocytes (%) (Auto) 7.1, Eosinophils (%) (Auto) 0.9, Basophils (%) (Auto) 1.1, Sodium Level 138, Potassium Level 3.8, Chloride Level 105, Carbon Dioxide Level 28, Anion Gap 5, Blood Urea Nitrogen 7, Creatinine 0.5L, Estimat Glomerular Filtration Rate > 60, Glucose Level 91, Hemoglobin A1c 5.0, Calcium Level 9.3, Total Bilirubin 0.4, Aspartate Amino Transf (AST/SGOT) 15, Alanine Aminotransferase (ALT/SGPT) 24, Alkaline Phosphatase 72, Total Protein 7.0, Albumin 3.0L, Globulin 4.0, Albumin/Globulin Ratio 0.8L Current Medications Medications (Trade) Dose Ordered Sig/Jaye Route PRN Reason Start Time Stop Time Status Last Admin Dose Admin Acetaminophen (Tylenol) 650 mg Q4H PRN ORAL fever 11/11/17 07:30 12/11/17 07:29 Albuterol/ Ipratropium (Albuterol/ Ipratropium) 3 ml EVERY 4 HOURS PRN HHN Shortness of Breath 11/11/17 07:30 11/16/17 07:29 Cefepime HCl 2 gm/ Dextrose 110 ml @ 220 mls/hr EVERY 12 HOURS IV 11/11/17 09:00 11/18/17 08:59 11/12/17 08:23 Dextrose (Dextrose 50%) STAT PRN IV Hypoglycemia 11/11/17 07:30 12/11/17 07:29 Heparin Sodium (Porcine) (Heparin 5000 units/ml) 5,000 units EVERY 12 HOURS SUBQ 11/11/17 09:00 12/11/17 08:59 11/12/17 08:24 Morphine Sulfate (Morphine Sulfate) 2 mg EVERY 4 HOURS PRN IVP Moderate Pain (Pain Scale 4-6) 11/11/17 13:15 11/18/17 07:29 11/12/17 13:57 Nitroglycerin (Ntg) 0.4 mg Q5M PRN SL Prn Chest Pain 11/11/17 07:30 12/11/17 07:29 Ondansetron HCl (Zofran) 4 mg Q6H PRN IVP Nausea & Vomiting 11/11/17 07:30 12/11/17 07:29 Polyethylene Glycol (Miralax) 17 gm DAILYPRN PRN ORAL Constipation 11/11/17 07:30 12/11/17 07:29 Temazepam (Restoril) 15 mg HSPRN PRN ORAL Insomnia 11/11/17 07:30 11/18/17 07:29 Vancomycin HCl (Vanco rx to dose) 1 ea DAILY PRN MISC Per rx protocol 11/11/17 07:45 12/11/17 07:44 Vancomycin HCl/ Dextrose 250 ml @ 166.667 mls/hr Q12H IVPB 11/11/17 14:00 11/16/17 13:59 11/12/17 13:55 Rosy Rocha MD Nov 12, 2017 17:52
[2017-11-12] MEDS: Hydromorphone 0.5mg/0.5ml inj IVP PRN (18:19)
[2017-11-12 20:04] VITALS: BP 106/48
[2017-11-13] VITALS: BP 101/59
[2017-11-13] MEDS: Hydromorphone 0.5mg/0.5ml inj IVP PRN ×4 (00:23→20:32)
[2017-11-13] MEDS: Vancomycin 1250mg/D5W 250ml IVPB SCH ×2 (00:50→14:03)
[2017-11-13 04:00] VITALS: BP 120/62
[2017-11-13 07:11] LABS: BASOPHILS % (AUTO) 1.2 % (0.0-2.0); HEMATOCRIT 37.5 % (37.0-47.0); HEMOGLOBIN 12.3 G/DL (12.0-16.0); LYMPHOCYTES % (AUTO) 38.4 % (20.0-45.0); MEAN CORPUSCULAR VOLUME 91 FL (80-99); MONOCYTES % (AUTO) 8.2 % (1.0-10.0); NEUTROPHILS % (AUTO) 51.3 % (45.0-75.0); PLATELET COUNT 213 K/UL (150-450); RED BLOOD COUNT 4.14 M/UL (4.20-5.40); RED CELL DISTRIBUTION WIDTH 11.4 % (11.6-14.8); WHITE BLOOD COUNT 8.4 K/UL (4.8-10.8)
[2017-11-13 07:31] LABS: ALANINE AMINOTRANSFERASE 29 U/L (12-78); ALBUMIN 3.2 G/DL (3.4-5.0); ALBUMIN/GLOBULIN RATIO 0.7 (1.0-2.7); ALKALINE PHOSPHATASE 77 U/L (46-116); ANION GAP 9 mmol/L (5-15); ASPARTATE AMINO TRANSFERASE 16 U/L (15-37); BILIRUBIN,TOTAL 0.3 MG/DL (0.2-1.0); BLOOD UREA NITROGEN 7 mg/dL (7-18); CALCIUM 9.2 MG/DL (8.5-10.1); CARBON DIOXIDE 27 MMOL/L (21-32); CHLORIDE 103 MMOL/L (98-107); CREATININE 0.6 MG/DL (0.55-1.30); POTASSIUM 3.6 MMOL/L (3.5-5.1); SODIUM 139 MMOL/L (136-145)
[2017-11-13 08:00] VITALS: BP 121/66
[2017-11-13] MEDS: Morphine Sulfate 4mg/ml Inj IVP PRN ×2 (08:00→22:04)
[2017-11-13] MEDS: Cefepime HCl 2 GM in D5W 110 ML IV SCH ×2 (08:06→21:57)
[2017-11-13] MEDS: Heparin 5000 units/ml inj SUBQ SCH ×2 (08:06→20:22)
--- NOTE | 2017-11-13 10:33 | General Surgery Progress Note ---
General Surgery-Progress Note Subjective Symptoms: improved Additional Comments doing well. wounds cleaning up. informed patient that she does not have clinical DM as she stated she does prior. pain improved. Objective Last 24 Hour Vital Signs Date Time Temp Pulse Resp B/P (MAP) Pulse Ox O2 Delivery O2 Flow Rate FiO2 11/13/17 08:00 99.3 83 18 121/66 98 Room Air 99.3 11/13/17 08:00 98.2 11/13/17 07:50 90 20 Room Air 21 11/13/17 06:08 98.2 11/13/17 04:00 98.2 74 17 120/62 97 Room Air 98.2 11/13/17 00:53 98.1 11/13/17 00:23 98.1 11/13/17 00:00 97.7 67 20 101/59 97 Room Air 97.7 11/12/17 20:04 98.1 77 18 106/48 97 Room Air 98.1 11/12/17 18:47 77 20 Room Air 21 11/12/17 18:19 98.0 11/12/17 15:45 98.0 71 20 97/52 99 98.0 11/12/17 14:27 98.0 11/12/17 13:57 97.7 11/12/17 12:03 97.7 82 20 117/57 98 97.7 I&O Intake and Output 11/12/17 11/13/17 19:00 07:00 Intake Total 1440.000 ml Balance 1440.000 ml Intake Oral 1080 ml IV Total 360.000 ml # Voids 2 4 # Bowel Movements 2 Dressing: other - open to air Wound: clean, other - areas of superfical ulcerations some seem to be self inflicted as scratch carranza. patient states wounds itch and she scratches them and pulls scabs off. Cardiovascular: RSR Respiratory: clear Abdomen: soft, non-tender Extremities: edema, tenderness, no cyanosis, other - erythema and edema improved. cellulitis resolving. Laboratory Tests Test 11/13/17 06:40 White Blood Count 8.4 K/UL (4.8-10.8) Red Blood Count 4.14 M/UL (4.20-5.40) L Hemoglobin 12.3 G/DL (12.0-16.0) Hematocrit 37.5 % (37.0-47.0) Mean Corpuscular Volume 91 FL (80-99) Mean Corpuscular Hemoglobin 29.7 PG (27.0-31.0) Mean Corpuscular Hemoglobin Concent 32.8 G/DL (32.0-36.0) Red Cell Distribution Width 11.4 % (11.6-14.8) L Platelet Count 213 K/UL (150-450) Mean Platelet Volume 5.5 FL (6.5-10.1) L Neutrophils (%) (Auto) 51.3 % (45.0-75.0) Lymphocytes (%) (Auto) 38.4 % (20.0-45.0) Monocytes (%) (Auto) 8.2 % (1.0-10.0) Eosinophils (%) (Auto) 1.0 % (0.0-3.0) Basophils (%) (Auto) 1.2 % (0.0-2.0) Sodium Level 139 MMOL/L (136-145) Potassium Level 3.6 MMOL/L (3.5-5.1) Chloride Level 103 MMOL/L (98-107) Carbon Dioxide Level 27 MMOL/L (21-32) Anion Gap 9 mmol/L (5-15) Blood Urea Nitrogen 7 mg/dL (7-18) Creatinine 0.6 MG/DL (0.55-1.30) Estimat Glomerular Filtration Rate > 60 mL/min (>60) Glucose Level 66 MG/DL (74-106) L Calcium Level 9.2 MG/DL (8.5-10.1) Total Bilirubin 0.3 MG/DL (0.2-1.0) Aspartate Amino Transf (AST/SGOT) 16 U/L (15-37) Alanine Aminotransferase (ALT/SGPT) 29 U/L (12-78) Alkaline Phosphatase 77 U/L (46-116) Total Protein 7.6 G/DL (6.4-8.2) Albumin 3.2 G/DL (3.4-5.0) L Globulin 4.4 g/dL Albumin/Globulin Ratio 0.7 (1.0-2.7) L Plan Problems: (1) Cellulitis Assessment & Plan: 47F with acute on chronic lower extremity cellulitis with large wounds that she has not cared for in some time. cellulitis worse on Left with dependant edema. toes with chronic skin changes consistent with ischemic peripheral disease. does not seem like fascitis but will need to monitor improving with IV Abx and edema/cellulitis much improved. wounds cleaning up well. -continue with wound care. clean wound and dressing care discussed with patient in detail for home care. -Can transition to oral Abx for discharge. -Keep lower extremities elevated when possible -okay to d/c from surgical standpoint Patient needs to establish care with PCP to monitor medical health and wounds. instructed to do so and states that she will. also needs to take better care of wounds which she has not been doing. instructed not to scratch wounds and to keep clean. keep covered when not at home. thank you for this consultation. will follow with recs. Cuco Richards Nov 13, 2017 10:33
[2017-11-13 12:00] VITALS: BP 130/77
--- NOTE | 2017-11-13 15:48 | Pulmonology Progress Note ---
Assessment/Plan Problems: (1) Diabetes mellitus (2) COPD (chronic obstructive pulmonary disease) (3) Cellulitis Assessment/Plan imprivng check cultures iv abx wound care f/u ID and surgeon recommendations. Subjective ROS Limited/Unobtainable: No Constitutional: Reports: no symptoms HEENT: Repors: no symptoms Respiratory: Reports: no symptoms Allergies: Coded Allergies: AZITHROMYCIN (Verified Allergy, Unknown, 11/11/17) fever, seizure CELECOXIB (Verified Allergy, Unknown, 11/11/17) Heart palpitations CITRUS AND DERIVATIVES (Verified Allergy, Unknown, 11/11/17) uti GABAPENTIN (Verified Allergy, Unknown, 11/11/17) migraine [place] (Verified Allergy, Unknown, Rash, 11/11/17) PREGABALIN (Verified Allergy, Unknown, 11/11/17) migraine [place] (Verified Allergy, Unknown, 11/11/17) hayfever Objective Last 24 Hour Vital Signs Date Time Temp Pulse Resp B/P (MAP) Pulse Ox O2 Delivery O2 Flow Rate FiO2 11/13/17 12:48 98.2 11/13/17 12:18 98.2 11/13/17 12:00 98.3 99 18 130/77 98 Room Air 98.3 11/13/17 08:30 98.2 11/13/17 08:00 99.3 83 18 121/66 98 Room Air 99.3 11/13/17 08:00 98.2 11/13/17 07:50 90 20 Room Air 21 11/13/17 06:08 98.2 11/13/17 04:00 98.2 74 17 120/62 97 Room Air 98.2 11/13/17 00:23 98.1 11/13/17 00:00 97.7 67 20 101/59 97 Room Air 97.7 11/12/17 20:04 98.1 77 18 106/48 97 Room Air 98.1 11/12/17 18:47 77 20 Room Air 21 11/12/17 18:19 98.0 Intake and Output 11/12/17 11/13/17 19:00 07:00 Intake Total 1440.000 ml Balance 1440.000 ml Intake Oral 1080 ml IV Total 360.000 ml # Voids 2 4 # Bowel Movements 2 General Appearance: WD/WN HEENT: normocephalic, atraumatic Respiratory/Chest: chest wall non-tender, lungs clear Breasts: no masses Cardiovascular: normal peripheral pulses, normal rate Abdomen: normal bowel sounds, soft, non tender Genitourinary: normal external genitalia 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 Microbiology Date/Time Source Procedure Growth Status 11/11/17 04:15 Blood Blood Culture - Preliminary NO GROWTH AFTER 48 HOURS Resulted 11/11/17 04:00 Blood Blood Culture - Preliminary NO GROWTH AFTER 48 HOURS Resulted 11/11/17 07:00 Wound Gram Stain - Final Resulted 11/11/17 07:00 Wound Culture - Preliminary Staphylococcus Aureus Resulted Laboratory Tests 11/13/17 06:40: White Blood Count 8.4, Red Blood Count 4.14L, Hemoglobin 12.3, Hematocrit 37.5, Mean Corpuscular Volume 91, Mean Corpuscular Hemoglobin 29.7, Mean Corpuscular Hemoglobin Concent 32.8, Red Cell Distribution Width 11.4L, Platelet Count 213, Mean Platelet Volume 5.5L, Neutrophils (%) (Auto) 51.3, Lymphocytes (%) (Auto) 38.4, Monocytes (%) (Auto) 8.2, Eosinophils (%) (Auto) 1.0, Basophils (%) (Auto ) 1.2, Sodium Level 139, Potassium Level 3.6, Chloride Level 103, Carbon Dioxide Level 27, Anion Gap 9, Blood Urea Nitrogen 7, Creatinine 0.6, Estimat Glomerular Filtration Rate > 60, Glucose Level 66L, Calcium Level 9.2, Total Bilirubin 0.3, Aspartate Amino Transf (AST/SGOT) 16, Alanine Aminotransferase ( ALT/SGPT) 29, Alkaline Phosphatase 77, Total Protein 7.6, Albumin 3.2L, Globulin 4.4, Albumin/Globulin Ratio 0.7L 11/13/17 13:00: Vancomycin Level Trough 7.2 Current Medications Medications (Trade) Dose Ordered Sig/Jaye Route PRN Reason Start Time Stop Time Status Last Admin Dose Admin Acetaminophen (Tylenol) 650 mg Q4H PRN ORAL fever 11/11/17 07:30 12/11/17 07:29 Albuterol/ Ipratropium (Albuterol/ Ipratropium) 3 ml EVERY 4 HOURS PRN HHN Shortness of Breath 11/11/17 07:30 11/16/17 07:29 Cefepime HCl 2 gm/ Dextrose 110 ml @ 220 mls/hr EVERY 12 HOURS IV 11/11/17 09:00 11/18/17 08:59 11/13/17 08:06 Dextrose (Dextrose 50%) STAT PRN IV Hypoglycemia 11/11/17 07:30 12/11/17 07:29 Heparin Sodium (Porcine) (Heparin 5000 units/ml) 5,000 units EVERY 12 HOURS SUBQ 11/11/17 09:00 12/11/17 08:59 11/13/17 08:06 Hydromorphone HCl (Dilaudid) 0.5 mg Q6HR PRN IVP Severe Pain (Pain Scale 7-10) 11/12/17 18:15 11/19/17 18:14 11/13/17 12:18 Morphine Sulfate (Morphine Sulfate) 2 mg EVERY 4 HOURS PRN IVP Moderate Pain (Pain Scale 4-6) 11/11/17 13:15 11/18/17 07:29 11/13/17 08:00 Nitroglycerin (Ntg) 0.4 mg Q5M PRN SL Prn Chest Pain 11/11/17 07:30 12/11/17 07:29 Ondansetron HCl (Zofran) 4 mg Q6H PRN IVP Nausea & Vomiting 11/11/17 07:30 12/11/17 07:29 Polyethylene Glycol (Miralax) 17 gm DAILYPRN PRN ORAL Constipation 11/11/17 07:30 12/11/17 07:29 Temazepam (Restoril) 15 mg HSPRN PRN ORAL Insomnia 11/11/17 07:30 11/18/17 07:29 Vancomycin HCl (Vanco rx to dose) 1 ea DAILY PRN MISC Per rx protocol 11/11/17 07:45 12/11/17 07:44 Vancomycin HCl 500 mg/Dextrose 275 ml @ 275 mls/hr ONCE ONCE IVPB 11/13/17 20:00 11/13/17 20:59 Vancomycin HCl/ Dextrose 250 ml @ 125 mls/hr Q12HR IVPB 11/13/17 21:00 11/18/17 20:59 Rosy Rocha MD Nov 13, 2017 15:48
--- NOTE | 2017-11-13 15:54 | Consultation ---
Consult Note Consult Note [id number] Devin Osei MD Nov 13, 2017 15:54
[2017-11-13 15:56] VITALS: BP 106/47
--- NOTE | 2017-11-13 16:27 | Internal Med Progress Note ---
Subjective Date of Service: Nov 13, 2017 Physician Name Ayush Powell Attending Physician King Lopes MD Current Medications Medications (Trade) Dose Ordered Sig/Jaye Route PRN Reason Start Time Stop Time Status Last Admin Dose Admin Acetaminophen (Tylenol) 650 mg Q4H PRN ORAL fever 11/11/17 07:30 12/11/17 07:29 Albuterol/ Ipratropium (Albuterol/ Ipratropium) 3 ml EVERY 4 HOURS PRN HHN Shortness of Breath 11/11/17 07:30 11/16/17 07:29 Cefepime HCl 2 gm/ Dextrose 110 ml @ 220 mls/hr EVERY 12 HOURS IV 11/11/17 09:00 11/18/17 08:59 11/13/17 08:06 Dextrose (Dextrose 50%) STAT PRN IV Hypoglycemia 11/11/17 07:30 12/11/17 07:29 Heparin Sodium (Porcine) (Heparin 5000 units/ml) 5,000 units EVERY 12 HOURS SUBQ 11/11/17 09:00 12/11/17 08:59 11/13/17 08:06 Hydromorphone HCl (Dilaudid) 0.5 mg Q6HR PRN IVP Severe Pain (Pain Scale 7-10) 11/12/17 18:15 11/19/17 18:14 11/13/17 12:18 Morphine Sulfate (Morphine Sulfate) 2 mg EVERY 4 HOURS PRN IVP Moderate Pain (Pain Scale 4-6) 11/11/17 13:15 11/18/17 07:29 11/13/17 08:00 Nitroglycerin (Ntg) 0.4 mg Q5M PRN SL Prn Chest Pain 11/11/17 07:30 12/11/17 07:29 Ondansetron HCl (Zofran) 4 mg Q6H PRN IVP Nausea & Vomiting 11/11/17 07:30 12/11/17 07:29 Polyethylene Glycol (Miralax) 17 gm DAILYPRN PRN ORAL Constipation 11/11/17 07:30 12/11/17 07:29 Temazepam (Restoril) 15 mg HSPRN PRN ORAL Insomnia 11/11/17 07:30 11/18/17 07:29 Vancomycin HCl (Vanco rx to dose) 1 ea DAILY PRN MISC Per rx protocol 11/11/17 07:45 12/11/17 07:44 Vancomycin HCl 500 mg/Dextrose 275 ml @ 275 mls/hr ONCE ONCE IVPB 11/13/17 20:00 11/13/17 20:59 Vancomycin HCl/ Dextrose 250 ml @ 125 mls/hr Q12HR IVPB 11/13/17 21:00 11/18/17 20:59 Allergies: Coded Allergies: AZITHROMYCIN (Verified Allergy, Unknown, 11/11/17) fever, seizure CELECOXIB (Verified Allergy, Unknown, 11/11/17) Heart palpitations CITRUS AND DERIVATIVES (Verified Allergy, Unknown, 11/11/17) uti GABAPENTIN (Verified Allergy, Unknown, 11/11/17) migraine [place] (Verified Allergy, Unknown, Rash, 11/11/17) PREGABALIN (Verified Allergy, Unknown, 11/11/17) migraine [place] (Verified Allergy, Unknown, 11/11/17) hayfever ROS Limited/Unobtainable: No Constitutional: Reports: no symptoms HEENT: Reports: no symptoms Cardiovascular: Reports: no symptoms Respiratory: Reports: no symptoms Gastrointestinal/Abdominal: Reports: no symptoms Genitourinary: Reports: no symptoms Neurologic/Psychiatric: Reports: no symptoms Subjective 47 YO F admitted with left leg pain. Now cellulitis left leg. Cover for Int Kamron-Dr Lopes Objective Last Vital Signs Date Time Temp Pulse Resp B/P (MAP) Pulse Ox O2 Delivery O2 Flow Rate FiO2 11/13/17 15:56 98.1 84 18 106/47 98 Room Air 98.1 11/13/17 07:50 21 Laboratory Tests Test 11/13/17 06:40 11/13/17 13:00 White Blood Count 8.4 K/UL (4.8-10.8) Red Blood Count 4.14 M/UL (4.20-5.40) L Hemoglobin 12.3 G/DL (12.0-16.0) Hematocrit 37.5 % (37.0-47.0) Mean Corpuscular Volume 91 FL (80-99) Mean Corpuscular Hemoglobin 29.7 PG (27.0-31.0) Mean Corpuscular Hemoglobin Concent 32.8 G/DL (32.0-36.0) Red Cell Distribution Width 11.4 % (11.6-14.8) L Platelet Count 213 K/UL (150-450) Mean Platelet Volume 5.5 FL (6.5-10.1) L Neutrophils (%) (Auto) 51.3 % (45.0-75.0) Lymphocytes (%) (Auto) 38.4 % (20.0-45.0) Monocytes (%) (Auto) 8.2 % (1.0-10.0) Eosinophils (%) (Auto) 1.0 % (0.0-3.0) Basophils (%) (Auto) 1.2 % (0.0-2.0) Sodium Level 139 MMOL/L (136-145) Potassium Level 3.6 MMOL/L (3.5-5.1) Chloride Level 103 MMOL/L (98-107) Carbon Dioxide Level 27 MMOL/L (21-32) Anion Gap 9 mmol/L (5-15) Blood Urea Nitrogen 7 mg/dL (7-18) Creatinine 0.6 MG/DL (0.55-1.30) Estimat Glomerular Filtration Rate > 60 mL/min (>60) Glucose Level 66 MG/DL (74-106) L Calcium Level 9.2 MG/DL (8.5-10.1) Total Bilirubin 0.3 MG/DL (0.2-1.0) Aspartate Amino Transf (AST/SGOT) 16 U/L (15-37) Alanine Aminotransferase (ALT/SGPT) 29 U/L (12-78) Alkaline Phosphatase 77 U/L (46-116) Total Protein 7.6 G/DL (6.4-8.2) Albumin 3.2 G/DL (3.4-5.0) L Globulin 4.4 g/dL Albumin/Globulin Ratio 0.7 (1.0-2.7) L Vancomycin Level Trough 7.2 ug/mL (5.0-12.0) Microbiology Date/Time Source Procedure Growth Status 11/11/17 04:15 Blood Blood Culture - Preliminary NO GROWTH AFTER 48 HOURS Resulted 11/11/17 04:00 Blood Blood Culture - Preliminary NO GROWTH AFTER 48 HOURS Resulted 11/11/17 07:00 Wound Gram Stain - Final Resulted 11/11/17 07:00 Wound Culture - Preliminary Staphylococcus Aureus Resulted Intake and Output 11/12/17 11/13/17 19:00 07:00 Intake Total 1440.000 ml Balance 1440.000 ml Intake Oral 1080 ml IV Total 360.000 ml # Voids 2 4 # Bowel Movements 2 Objective General Appearance: WD/WN, no apparent distress, alert EENT: PERRL/EOMI, normal ENT inspection, TMs normal Neck: non-tender, normal alignment, supple Cardiovascular: normal peripheral pulses, normal rate, regular rhythm, no gallop/murmur, no JVD Respiratory/Chest: chest wall non-tender, lungs clear, normal breath sounds, no respiratory distress, no accessory muscle use Abdomen: normal bowel sounds, non tender, soft, no organomegaly, no mass, abnormal bowel sounds Extremities: other - crusty lesion left leg Edema: trace edema 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 Await sensitivities. Continue vanco and cefepime per ID (2) Edema (3) Diabetes mellitus (4) COPD (chronic obstructive pulmonary disease) Status: progressing AUYSH POWELL Nov 13, 2017 16:27
[2017-11-13] MEDS ORDERED: Vancomycin 500mg in D5W 275ml IVPB ONE (20:00)
[2017-11-13 20:24] VITALS: BP 125/72
--- NOTE | 2017-11-13 23:15 | Consultation ---
DATE OF CONSULTATION: 11/13/2017 INFECTIOUS DISEASE CONSULTATION CONSULTING PHYSICIAN: Devin Osei M.D. REFERRING PHYSICIAN: King Lopes M.D. and Rico Tavera M.D. REASON FOR CONSULTATION: Evaluation of the patient for lower extremity cellulitis, antibiotic management. HISTORY OF PRESENT ILLNESS: The patient is a 47-year-old female with multiple medical problems, who was admitted to this medical center for lower extremity wound and swelling, left more than right. The patient mentioned she started to have some edema back in July in the lower extremities. Subsequent to that, the patient had few times scratching the area. After that, the area got worse with developing of wound that progressed in the last two months. The patient is admitted for wound infection, started on antibiotics, and an Infectious Disease consultation has been requested for further evaluation of the patient and antibiotic management. PAST MEDICAL HISTORY: 1. COPD. 2. Asthma. 3. History of uterine fibroids. 4. ? Diabetes. ALLERGIES: Zithromax. FAMILY HISTORY: Not contributing. SOCIAL HISTORY: The patient smokes cigarette, and no history of alcohol abuse, however, the patient some times abuse pain medications. No history of IV drug abuse. REVIEW OF SYSTEMS: A 10-point review was done except what was mentioned has been negative. PHYSICAL EXAMINATION: VITAL SIGNS: Temperature 100.8 degrees at the time of admission, pulse 86, respiratory rate 18, and blood pressure 106/47. HEENT: No pale conjunctivae. No icterus. NECK: No lymphadenopathy. CHEST: Clear. HEART: S1 and S2. ABDOMEN: Soft. EXTREMITIES: The patient has bilateral lower extremity superficial wounds with erythema around it and mild discharge. NEUROLOGIC: Awake and alert. LABORATORY AND DIAGNOSTIC DATA: White blood cells 8, hemoglobin 12, and platelets 213. UA unremarkable. BUN 7 and creatinine 0.6. ALT, AST, and alkaline phosphatase unremarkable. Wound culture is growing Staphylococcus aureus. PLAN: 1. We will continue the patient on IV vancomycin and cefepime (the wound culture does not reveal any gram-negative, we may stop cefepime). 2. Monitor CBC. 3. Monitor BMP. 4. Monitor final cultures (blood, wound). 5. Doppler of lower extremity is pending. 6. Surgical followup. 7. HIV screening. 8. Based on the patient's clinical course and laboratories, we will do further recommendations. Thank you, Dr. Tavera, for allowing me to participate in the care of this patient. I will follow the patient with you during this hospitalization. Devin Osei M.D. DR: ASTER JOB#: [id number] CC:
[2017-11-14 00:21] VITALS: BP 101/57
[2017-11-14] MEDS: Hydromorphone 0.5mg/0.5ml inj IVP PRN (02:29)
[2017-11-14 04:00] VITALS: BP 116/66
[2017-11-14 07:12] LABS: BASOPHILS % (AUTO) 0.8 % (0.0-2.0); EOSINOPHILS % (AUTO) 0.6 % (0.0-3.0); HEMATOCRIT 36.3 % (37.0-47.0); HEMOGLOBIN 11.9 G/DL (12.0-16.0); LYMPHOCYTES % (AUTO) 39.1 % (20.0-45.0); MEAN CORPUSCULAR VOLUME 90 FL (80-99); NEUTROPHILS % (AUTO) 52.6 % (45.0-75.0); PLATELET COUNT 192 K/UL (150-450); RED BLOOD COUNT 4.02 M/UL (4.20-5.40); RED CELL DISTRIBUTION WIDTH 11.3 % (11.6-14.8); WHITE BLOOD COUNT 7.4 K/UL (4.8-10.8)
[2017-11-14 07:42] LABS: ANION GAP 6 mmol/L (5-15); BLOOD UREA NITROGEN 6 mg/dL (7-18); CALCIUM 9.3 MG/DL (8.5-10.1); CARBON DIOXIDE 28 MMOL/L (21-32); CHLORIDE 104 MMOL/L (98-107); CREATININE 0.5 MG/DL (0.55-1.30); POTASSIUM 3.6 MMOL/L (3.5-5.1); SODIUM 138 MMOL/L (136-145)
[2017-11-14 08:00] VITALS: BP 111/61
[2017-11-14] MEDS: Morphine Sulfate 4mg/ml Inj IVP PRN ×3 (08:48→20:26)
[2017-11-14] MEDS: Heparin 5000 units/ml inj SUBQ SCH ×2 (08:49→09:00)
[2017-11-14] MEDS: Cefepime HCl 2 GM in D5W 110 ML IV SCH (08:57)
[2017-11-14] MEDS ORDERED: Vancomycin 1.5gm/D5W 250ml 250 ML IVPB SCH (09:00)
[2017-11-14] MEDS ORDERED: Cefepime HCl 2 GM in D5W 110 ML IV SCH (11:00)
[2017-11-14 12:00] VITALS: BP 116/66
[2017-11-14 16:00] VITALS: BP 121/78
--- NOTE | 2017-11-14 19:31 | Pulmonology Progress Note ---
Assessment/Plan Problems: (1) Cellulitis (2) COPD (chronic obstructive pulmonary disease) (3) Diabetes mellitus Assessment/Plan imprivng check cultures iv abx wound care f/u ID and surgeon recommendations. Subjective ROS Limited/Unobtainable: No Constitutional: Reports: no symptoms HEENT: Repors: no symptoms Respiratory: Reports: no symptoms Allergies: Coded Allergies: AZITHROMYCIN (Verified Allergy, Unknown, 11/11/17) fever, seizure CELECOXIB (Verified Allergy, Unknown, 11/11/17) Heart palpitations CITRUS AND DERIVATIVES (Verified Allergy, Unknown, 11/11/17) uti GABAPENTIN (Verified Allergy, Unknown, 11/11/17) migraine [place] (Verified Allergy, Unknown, Rash, 11/11/17) PREGABALIN (Verified Allergy, Unknown, 11/11/17) migraine [place] (Verified Allergy, Unknown, 11/11/17) hayfever Objective Last 24 Hour Vital Signs Date Time Temp Pulse Resp B/P (MAP) Pulse Ox O2 Delivery O2 Flow Rate FiO2 11/14/17 19:27 81 18 Room Air 21 11/14/17 16:00 98.8 91 21 121/78 98 98.8 11/14/17 12:00 98.1 80 20 116/66 96 98.1 11/14/17 10:38 87 18 Room Air 21 11/14/17 08:00 98.2 90 18 111/61 97 98.2 11/14/17 04:00 98.1 74 18 116/66 97 Room Air 98.1 11/14/17 00:21 98.2 70 18 101/57 100 Room Air 98.2 11/13/17 21:32 102 18 Room Air 21 11/13/17 20:24 99.1 102 18 125/72 99 Room Air 99.1 Intake and Output 11/13/17 11/14/17 19:00 07:00 Intake Total 1440.000 ml 240 ml Balance 1440.000 ml 240 ml Intake Oral 1080 ml 240 ml IV Total 360.000 ml # Voids 4 3 # Bowel Movements 1 General Appearance: WD/WN HEENT: mucous membranes moist Respiratory/Chest: chest wall non-tender, no accessory muscle use Breasts: no masses Cardiovascular: normal peripheral pulses, regular rhythm Abdomen: normal bowel sounds, soft, non tender Genitourinary: normal external genitalia Skin: rash, lesions Neurologic/Psychiatric: abnormal gait Laboratory Tests 11/14/17 05:25: White Blood Count 7.4, Red Blood Count 4.02L, Hemoglobin 11.9L, Hematocrit 36.3L , Mean Corpuscular Volume 90, Mean Corpuscular Hemoglobin 29.6, Mean Corpuscular Hemoglobin Concent 32.8, Red Cell Distribution Width 11.3L, Platelet Count 192, Mean Platelet Volume 5.3L, Neutrophils (%) (Auto) 52.6, Lymphocytes (%) (Auto) 39.1, Monocytes (%) (Auto) 7.0, Eosinophils (%) (Auto) 0.6, Basophils (%) (Auto) 0.8, Sodium Level 138, Potassium Level 3.6, Chloride Level 104, Carbon Dioxide Level 28, Anion Gap 6, Blood Urea Nitrogen 6L, Creatinine 0.5L, Estimat Glomerular Filtration Rate > 60, Glucose Level 123H, Calcium Level 9.3, HIV (1&2) Antibody Rapid Negative Current Medications Medications (Trade) Dose Ordered Sig/Jaye Route PRN Reason Start Time Stop Time Status Last Admin Dose Admin Acetaminophen (Tylenol) 650 mg Q4H PRN ORAL fever 11/11/17 07:30 12/11/17 07:29 Albuterol/ Ipratropium (Albuterol/ Ipratropium) 3 ml EVERY 4 HOURS PRN HHN Shortness of Breath 11/11/17 07:30 11/16/17 07:29 Cefepime HCl 2 gm/ Dextrose 110 ml @ 220 mls/hr Q12H IV 11/14/17 11:00 11/18/17 10:59 11/14/17 11:29 Dextrose (Dextrose 50%) STAT PRN IV Hypoglycemia 11/11/17 07:30 12/11/17 07:29 Heparin Sodium (Porcine) (Heparin 5000 units/ml) 5,000 units EVERY 12 HOURS SUBQ 11/11/17 09:00 12/11/17 08:59 11/13/17 20:22 Hydromorphone HCl (Dilaudid) 0.5 mg Q6HR PRN IVP Severe Pain (Pain Scale 7-10) 11/12/17 18:15 11/19/17 18:14 11/14/17 02:29 Morphine Sulfate (Morphine Sulfate) 2 mg EVERY 4 HOURS PRN IVP Moderate Pain (Pain Scale 4-6) 11/11/17 13:15 11/18/17 07:29 11/14/17 14:29 Nitroglycerin (Ntg) 0.4 mg Q5M PRN SL Prn Chest Pain 11/11/17 07:30 12/11/17 07:29 Ondansetron HCl (Zofran) 4 mg Q6H PRN IVP Nausea & Vomiting 11/11/17 07:30 12/11/17 07:29 Polyethylene Glycol (Miralax) 17 gm DAILYPRN PRN ORAL Constipation 11/11/17 07:30 12/11/17 07:29 Temazepam (Restoril) 15 mg HSPRN PRN ORAL Insomnia 11/11/17 07:30 11/18/17 07:29 Vancomycin HCl (Vanco rx to dose) 1 ea DAILY PRN MISC Per rx protocol 11/11/17 07:45 12/11/17 07:44 Vancomycin HCl/ Dextrose 250 ml @ 125 mls/hr Q12HR IVPB 11/14/17 09:00 11/19/17 08:59 11/14/17 09:04 Rosy Rocha MD Nov 14, 2017 19:31
--- NOTE | 2017-11-14 19:55 | Internal Med Progress Note ---
Subjective Date of Service: Nov 14, 2017 Physician Name Ayush Tavera Attending Physician King Lopes MD Current Medications Medications (Trade) Dose Ordered Sig/Jaye Route PRN Reason Start Time Stop Time Status Last Admin Dose Admin Acetaminophen (Tylenol) 650 mg Q4H PRN ORAL fever 11/11/17 07:30 12/11/17 07:29 Albuterol/ Ipratropium (Albuterol/ Ipratropium) 3 ml EVERY 4 HOURS PRN HHN Shortness of Breath 11/11/17 07:30 11/16/17 07:29 Cefepime HCl 2 gm/ Dextrose 110 ml @ 220 mls/hr Q12H IV 11/14/17 11:00 11/18/17 10:59 11/14/17 11:29 Dextrose (Dextrose 50%) STAT PRN IV Hypoglycemia 11/11/17 07:30 12/11/17 07:29 Heparin Sodium (Porcine) (Heparin 5000 units/ml) 5,000 units EVERY 12 HOURS SUBQ 11/11/17 09:00 12/11/17 08:59 11/13/17 20:22 Hydromorphone HCl (Dilaudid) 0.5 mg Q6HR PRN IVP Severe Pain (Pain Scale 7-10) 11/12/17 18:15 11/19/17 18:14 11/14/17 02:29 Morphine Sulfate (Morphine Sulfate) 2 mg EVERY 4 HOURS PRN IVP Moderate Pain (Pain Scale 4-6) 11/11/17 13:15 11/18/17 07:29 11/14/17 14:29 Nitroglycerin (Ntg) 0.4 mg Q5M PRN SL Prn Chest Pain 11/11/17 07:30 12/11/17 07:29 Ondansetron HCl (Zofran) 4 mg Q6H PRN IVP Nausea & Vomiting 11/11/17 07:30 12/11/17 07:29 Polyethylene Glycol (Miralax) 17 gm DAILYPRN PRN ORAL Constipation 11/11/17 07:30 12/11/17 07:29 Temazepam (Restoril) 15 mg HSPRN PRN ORAL Insomnia 11/11/17 07:30 11/18/17 07:29 Vancomycin HCl (Vanco rx to dose) 1 ea DAILY PRN MISC Per rx protocol 11/11/17 07:45 12/11/17 07:44 Vancomycin HCl/ Dextrose 250 ml @ 125 mls/hr Q12HR IVPB 11/14/17 09:00 11/19/17 08:59 11/14/17 09:04 Allergies: Coded Allergies: AZITHROMYCIN (Verified Allergy, Unknown, 11/11/17) fever, seizure CELECOXIB (Verified Allergy, Unknown, 11/11/17) Heart palpitations CITRUS AND DERIVATIVES (Verified Allergy, Unknown, 11/11/17) uti GABAPENTIN (Verified Allergy, Unknown, 11/11/17) migraine [place] (Verified Allergy, Unknown, Rash, 11/11/17) PREGABALIN (Verified Allergy, Unknown, 11/11/17) migraine [place] (Verified Allergy, Unknown, 11/11/17) hayfever ROS Limited/Unobtainable: No Constitutional: Reports: no symptoms HEENT: Reports: no symptoms Cardiovascular: Reports: no symptoms Respiratory: Reports: no symptoms Gastrointestinal/Abdominal: Reports: no symptoms Genitourinary: Reports: no symptoms Neurologic/Psychiatric: Reports: no symptoms Subjective 47 YO F admitted with left leg pain. Now cellulitis left leg. Cover for Int Kamron-Dr Lopes Objective Last Vital Signs Date Time Temp Pulse Resp B/P (MAP) Pulse Ox O2 Delivery O2 Flow Rate FiO2 11/14/17 19:27 81 18 Room Air 21 11/14/17 16:00 98.8 121/78 98 98.8 Laboratory Tests Test 11/14/17 05:25 White Blood Count 7.4 K/UL (4.8-10.8) Red Blood Count 4.02 M/UL (4.20-5.40) L Hemoglobin 11.9 G/DL (12.0-16.0) L Hematocrit 36.3 % (37.0-47.0) L Mean Corpuscular Volume 90 FL (80-99) Mean Corpuscular Hemoglobin 29.6 PG (27.0-31.0) Mean Corpuscular Hemoglobin Concent 32.8 G/DL (32.0-36.0) Red Cell Distribution Width 11.3 % (11.6-14.8) L Platelet Count 192 K/UL (150-450) Mean Platelet Volume 5.3 FL (6.5-10.1) L Neutrophils (%) (Auto) 52.6 % (45.0-75.0) Lymphocytes (%) (Auto) 39.1 % (20.0-45.0) Monocytes (%) (Auto) 7.0 % (1.0-10.0) Eosinophils (%) (Auto) 0.6 % (0.0-3.0) Basophils (%) (Auto) 0.8 % (0.0-2.0) Sodium Level 138 MMOL/L (136-145) Potassium Level 3.6 MMOL/L (3.5-5.1) Chloride Level 104 MMOL/L (98-107) Carbon Dioxide Level 28 MMOL/L (21-32) Anion Gap 6 mmol/L (5-15) Blood Urea Nitrogen 6 mg/dL (7-18) L Creatinine 0.5 MG/DL (0.55-1.30) L Estimat Glomerular Filtration Rate > 60 mL/min (>60) Glucose Level 123 MG/DL (74-106) H Calcium Level 9.3 MG/DL (8.5-10.1) HIV (1&2) Antibody Rapid Negative (NEGATIVE) Intake and Output 11/13/17 11/14/17 19:00 07:00 Intake Total 1440.000 ml 240 ml Balance 1440.000 ml 240 ml Intake Oral 1080 ml 240 ml IV Total 360.000 ml # Voids 4 3 # Bowel Movements 1 Objective General Appearance: WD/WN, no apparent distress, alert EENT: PERRL/EOMI, normal ENT inspection, TMs normal Neck: non-tender, normal alignment, supple Cardiovascular: normal peripheral pulses, normal rate, regular rhythm, no gallop/murmur, no JVD Respiratory/Chest: chest wall non-tender, lungs clear, normal breath sounds, no respiratory distress, no accessory muscle use Abdomen: normal bowel sounds, non tender, soft, no organomegaly, no mass, abnormal bowel sounds Extremities: other - crusty lesion left leg Edema: trace edema 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 Continue vanco and cefepime per ID (2) Edema (3) Diabetes mellitus (4) COPD (chronic obstructive pulmonary disease) Status: doing well Assessment/Plan D/C tonight on Bactrim D/S one tab BID for 10 days. D/W ID-AYUSH Bennett Nov 14, 2017 19:55
[2017-11-14 20:00] VITALS: BP 137/64
--- NOTE | 2017-11-14 20:05 | Infectious Diseases Prog Note ---
Assessment/Plan Assessment/Plan :A Bl lower ext cellulitis Wnd Cx: MRSA HIV screening : Neg COPD. Asthma. History of uterine fibroids. ? Diabetes. PLAN: continue the patient on IV vancomycin and cefepime (the wound culture does not reveal any gram-negative, we may stop cefepime). ok to DC on bactrim x 10 d ( DW PCP) Monitor CBC. Monitor BMP. Monitor final cultures (blood, wound). Doppler of lower extremity is pending. Surgical followup. . Subjective Allergies: Coded Allergies: AZITHROMYCIN (Verified Allergy, Unknown, 11/11/17) fever, seizure CELECOXIB (Verified Allergy, Unknown, 11/11/17) Heart palpitations CITRUS AND DERIVATIVES (Verified Allergy, Unknown, 11/11/17) uti GABAPENTIN (Verified Allergy, Unknown, 11/11/17) migraine LATEX (Verified Allergy, Unknown, Rash, 11/11/17) PREGABALIN (Verified Allergy, Unknown, 11/11/17) migraine [place] (Verified Allergy, Unknown, 11/11/17) hayfever Subjective pt want to go home Objective Vital Signs Last 24 Hour Vital Signs Date Time Temp Pulse Resp B/P (MAP) Pulse Ox O2 Delivery O2 Flow Rate FiO2 11/14/17 19:27 81 18 Room Air 21 11/14/17 16:00 98.8 91 21 121/78 98 98.8 11/14/17 12:00 98.1 80 20 116/66 96 98.1 11/14/17 10:38 87 18 Room Air 21 11/14/17 08:00 98.2 90 18 111/61 97 98.2 11/14/17 04:00 98.1 74 18 116/66 97 Room Air 98.1 11/14/17 00:21 98.2 70 18 101/57 100 Room Air 98.2 11/13/17 21:32 102 18 Room Air 21 11/13/17 20:24 99.1 102 18 125/72 99 Room Air 99.1 Height (Feet): 5 Height (Inches): 6.00 Weight (Pounds): 180 HEENT: anicteric Respiratory/Chest: normal breath sounds Cardiovascular: regular rhythm Abdomen: non distended Laboratory Tests Test 11/14/17 05:25 White Blood Count 7.4 K/UL (4.8-10.8) Red Blood Count 4.02 M/UL (4.20-5.40) L Hemoglobin 11.9 G/DL (12.0-16.0) L Hematocrit 36.3 % (37.0-47.0) L Mean Corpuscular Volume 90 FL (80-99) Mean Corpuscular Hemoglobin 29.6 PG (27.0-31.0) Mean Corpuscular Hemoglobin Concent 32.8 G/DL (32.0-36.0) Red Cell Distribution Width 11.3 % (11.6-14.8) L Platelet Count 192 K/UL (150-450) Mean Platelet Volume 5.3 FL (6.5-10.1) L Neutrophils (%) (Auto) 52.6 % (45.0-75.0) Lymphocytes (%) (Auto) 39.1 % (20.0-45.0) Monocytes (%) (Auto) 7.0 % (1.0-10.0) Eosinophils (%) (Auto) 0.6 % (0.0-3.0) Basophils (%) (Auto) 0.8 % (0.0-2.0) Sodium Level 138 MMOL/L (136-145) Potassium Level 3.6 MMOL/L (3.5-5.1) Chloride Level 104 MMOL/L (98-107) Carbon Dioxide Level 28 MMOL/L (21-32) Anion Gap 6 mmol/L (5-15) Blood Urea Nitrogen 6 mg/dL (7-18) L Creatinine 0.5 MG/DL (0.55-1.30) L Estimat Glomerular Filtration Rate > 60 mL/min (>60) Glucose Level 123 MG/DL (74-106) H Calcium Level 9.3 MG/DL (8.5-10.1) HIV (1&2) Antibody Rapid Negative (NEGATIVE) Current Medications Medications (Trade) Dose Ordered Sig/Jaye Route PRN Reason Start Time Stop Time Status Last Admin Dose Admin Acetaminophen (Tylenol) 650 mg Q4H PRN ORAL fever 11/11/17 07:30 12/11/17 07:29 Albuterol/ Ipratropium (Albuterol/ Ipratropium) 3 ml EVERY 4 HOURS PRN HHN Shortness of Breath 11/11/17 07:30 11/16/17 07:29 Cefepime HCl 2 gm/ Dextrose 110 ml @ 220 mls/hr Q12H IV 11/14/17 11:00 11/18/17 10:59 11/14/17 11:29 Dextrose (Dextrose 50%) STAT PRN IV Hypoglycemia 11/11/17 07:30 12/11/17 07:29 Heparin Sodium (Porcine) (Heparin 5000 units/ml) 5,000 units EVERY 12 HOURS SUBQ 11/11/17 09:00 12/11/17 08:59 11/13/17 20:22 Hydromorphone HCl (Dilaudid) 0.5 mg Q6HR PRN IVP Severe Pain (Pain Scale 7-10) 11/12/17 18:15 11/19/17 18:14 11/14/17 02:29 Morphine Sulfate (Morphine Sulfate) 2 mg EVERY 4 HOURS PRN IVP Moderate Pain (Pain Scale 4-6) 11/11/17 13:15 11/18/17 07:29 11/14/17 14:29 Nitroglycerin (Ntg) 0.4 mg Q5M PRN SL Prn Chest Pain 11/11/17 07:30 12/11/17 07:29 Ondansetron HCl (Zofran) 4 mg Q6H PRN IVP Nausea & Vomiting 11/11/17 07:30 12/11/17 07:29 Polyethylene Glycol (Miralax) 17 gm DAILYPRN PRN ORAL Constipation 11/11/17 07:30 12/11/17 07:29 Temazepam (Restoril) 15 mg HSPRN PRN ORAL Insomnia 11/11/17 07:30 11/18/17 07:29 Vancomycin HCl (Vanco rx to dose) 1 ea DAILY PRN MISC Per rx protocol 11/11/17 07:45 12/11/17 07:44 Vancomycin HCl/ Dextrose 250 ml @ 125 mls/hr Q12HR IVPB 11/14/17 09:00 11/19/17 08:59 11/14/17 09:04 Devin Osei MD Nov 14, 2017 20:05
--- NOTE | 2017-11-15 11:12 | Discharge Summary ---
Discharge Summary Discharge Summary Discharge Summary DATE OF ADMISSION: 11/11/2017 DATE OF DISCHARGE: 11/14/2017 REASON FOR ADMISSION: 47 years old female with a history of diabetes presented to ED with complaints of lower extremities wounds and edema. Patient reported that for the last 4 months she had a left leg wound, but for the last 2 days it became very red with some wet drainage. Patient denied fever and chills. Patient reported once being on diuretics , however had not seen the doctor for a year. Vital signs were stable, afebrile. WBC -10.1 , stable hemoglobin and hematocrit. Lactic acid -0.9. Stable electrolytes and renal parameters. Glucose -102. ProBNP -17. EKG revealed normal sinus rhythm, no acute ischemic changes. Patient was given IV fluids, empiric antibiotic and was admitted to medical surgical floor with diagnosis of bilateral lower extremities cellulitis. CONSULTANTS: pulmonary Dr. Rocha ID specialist dr Osei surgery Dr. Richards [facility] COURSE: Patient admitted to medical surgical floor. Patient was started on empiric antibiotic. ID specialist clsoely followed. Wound culture revealed MRSA. Blood cultures were negative. Patient initially was on IV vancomycin and cefepime. Cefepime stopped. Patient was on IV vancomycin while in the hospital and was transitioned to oral Bactrim for additional 10 days upon discharge. Prescription for antibiotic provided. Patient was counseled on compliance with completing antibiotic regimen. Venous and arterial Doppler bilateral lower extremities were done, no evidence of occlusive arterial disease, no evidence of acute DVT. HIV test was negative. Blood sugar appeared to be stable. Hemoglobin A1c -5.0 ,no need for blood sugar management at this time. Pain management provided. DVT prophylaxis provided. Supplemental oxygen provided as needed to keep pulse oximetry above 92% . Pulmonary toilet was on standby as needed with bronchodilator. Patient had no evidence of COPD / asthma exacerbation. Patient did not care for her wounds for some time. Cellulitis was worse on the left lower extremity with dependent edema. Toes with chronic skin changes, consistent with ischemic peripheral disease. Per surgeon, cellulitis and wound did not look like fasciitis, but patient needs close monitoring as outpatient. Patient clinically improved with IV antibiotic. Edema and appearance of cellulitis with much improvement. Surgeon recommended to continue the wound care. Patient was taught how to provide wound care and dressing change. Surgeon discussed with patient in detail for further home care. Patient was recommended to elevate lower extremities when possible. Patient was recommended to establish care with a primary care provider.Patient was recommended to cover wounds when not at home. Patient was stable for discharge. FINAL DIAGNOSES: Cellulitis bilateral lower extremities. COPD/asthma History of diabetes DISCHARGE MEDICATIONS: See Medication Reconciliation list. DISCHARGE INSTRUCTIONS: Patient was discharged home Follow up with primary care provider I have been assigned to dictate discharge summary for this account. I was not involved in the patient's management. Belen Carlos NP ([place]) Nov 15, 2017 11:12
--- NOTE | 2017-11-15 12:43 | Diagnostic Imaging Report ---
APPROVED REPORT CPT Code: 60080 Symptoms Comments: BLE pain BILATERAL: Common femoral artery waveform analysis is within normal limits at rest. Color flow duplex sonography reveals patency of the superficial femoral, popliteal, and tibial arteries, there is no evidence of stenosis or occlusion within these segments. Doppler tibial artery waveform analysis is within normal limits, bilaterally. There is no evidence of significant arterial occlusive disease, bilaterally.
--- NOTE | 2017-11-15 12:44 | Diagnostic Imaging Report ---
APPROVED REPORT CPT Code: 25857 Present Symptoms Comments: BILATERAL LEGS PAIN. BILATERAL: Imaging reveals a patent deep venous system bilaterally. There is no evidence of thrombus within the femoral, popliteal or tibial segments. The greater saphenous veins are also within normal limits. Doppler indicates normal spontaneous flow within these segments.
--- NOTE | 2017-11-16 17:47 | Cardiology Report ---
APPROVED REPORT EKG Measurement Heart [id number] Normal sinus rhythm Normal ECG
== END 2017-11-14 20:50 | disposition home or self-care (01) | DRG 383 ==
LOC: EMR 03:48 → 4W 04:38 → EDBEDREQ 04:49
DX: L03.116 Cellulitis of left lower limb (principal); J44.9 Chronic obstructive pulmonary disease, unspecified; L03.115 Cellulitis of right lower limb; E11.9 Type 2 diabetes mellitus without complications; R60.0 Localized edema; Z86.14 Personal history of Methicillin resistant Staphylococcus aureus infection; Z88.6 Allergy status to analgesic agent; Z88.1 Allergy status to other antibiotic agents; Z88.8 Allergy status to other drugs, medicaments and biological substances; F17.200 Nicotine dependence, unspecified, uncomplicated
CPT/HCPCS: 36415; 71045; 80048; 80053; 80202; 81003; 83036; 83605; 83880; 85025; 86703; 87040; 87070; 87181; 87205; 93005; 93925; 93970; 94664; 99285

== ENCOUNTER 2017-12-12 03:59 | Emergency (ER) | payer OTHER ==
[~2017-12-12] VITALS: Ht 167.6 cm; Wt 81.6 kg
[~2017-12-12 03:59] MED LIST: IBUPROFEN600 MG ORAL; MULTIVITAMINS1 EAC2 ORAL; TYLENOL650 MG/20. ORAL; VITAMIN C500 M1 ORAL
[2017-12-12 04:25] VITALS: BP 118/68
[2017-12-12] MEDS ORDERED: Vancomycin 1.5gm/D5W 250ml 250 ML IVPB ONE (04:30)
[2017-12-12] MEDS ORDERED: MUPIROCIN22 GM TOPIC (04:38)
[2017-12-12] MEDS ORDERED: BACTRIM DS TAB1 EAC1 ORAL (04:38)
--- NOTE | 2017-12-12 04:39 | Emergency Room Report ---
History of Present Illness General Chief Complaint: Edema Source: Patient, Medical Record Present Illness HPI This is a 47-year-old female with a history of MRSA cellulitis to lower extremity. She was admitted here last month for MRSA was sensitive to vancomycin, Bactrim and clindamycin. She was treated with 4 days of vancomycin and then outpatient treatment with Bactrim for 2 weeks. Her symptoms got much better but a week later it came back again. Now she presents with chief complaint of drainage to her left lower extremity. Right lower extremity symptom resolved. Not as bad as last time. No pain. No trauma no fever chills. Denies any other complaint. She also had DVT study that was negative. Allergies: Coded Allergies: AZITHROMYCIN (Verified Allergy, Unknown, 11/11/17) fever, seizure CELECOXIB (Verified Allergy, Unknown, 11/11/17) Heart palpitations CITRUS AND DERIVATIVES (Verified Allergy, Unknown, 11/11/17) uti ERYTHROMYCIN BASE (Verified Allergy, Unknown, 12/12/17) GABAPENTIN (Verified Allergy, Unknown, 11/11/17) migraine LATEX (Verified Allergy, Unknown, Rash, 11/11/17) PREGABALIN (Verified Allergy, Unknown, 11/11/17) migraine [place] (Verified Allergy, Unknown, 11/11/17) hayfever Patient History Past Medical History: see triage record, old chart reviewed Past Surgical History: other Pertinent Family History: none Social History: Denies: smoking Now: No Immunizations: other Reviewed Nursing Documentation: PMH: Agreed; PSxH: Agreed Nursing Documentation-PMH Hx Cardiac Problems: Yes - Mitral Valve Prolapse Hx Asthma: Yes Hx COPD: No Hx Diabetes: No Review of Systems Eye: Denies: eye pain, blurred vision ENT: Denies: ear pain, nose congestion, throat swelling Respiratory: Denies: cough, shortness of breath Cardiovascular: Denies: chest pain, palpitations Gastrointestinal: Denies: abdominal pain, diarrhea, nausea, vomiting Musculoskeletal: Denies: back pain, joint pain Skin: Denies: rash Neurological: Denies: headache, numbness Endocrine: Denies: increased thirst, increased urine Hematologic/Lymphatic: Denies: easy bruising All Other Systems: negative except mentioned in HPI Physical Exam Vital Signs Date Time Temp Pulse Resp B/P (MAP) Pulse Ox O2 Delivery O2 Flow Rate FiO2 12/12/17 04:03 98.3 86 18 120/77 96 Room Air 98.2 vitals normal Sp02 EP Interpretation: reviewed, normal General Appearance: well appearing, no apparent distress, alert Head: normocephalic, atraumatic Eyes: bilateral eye PERRL, bilateral eye EOMI ENT: hearing grossly normal, normal pharynx Neck: full range of motion, supple, no meningismus Respiratory: chest non-tender, lungs clear, normal breath sounds Cardiovascular #1: regular rate, rhythm, no murmur Gastrointestinal: normal bowel sounds, non tender, no mass, no organomegaly, no bruit, non-distended Musculoskeletal: back normal, gait/station normal, normal range of motion, other - Bilateral lower extremities with 2+ pitting edema. Left lower leg with cellulitis and ulceration with yellowish drainage. Area of ulceration measured about 4 x 5 cm. No crepitance. Psychiatric: mood/affect normal Skin: warm/dry Medical Decision Making Diagnostic Impression: Primary Impression: Left leg cellulitis Additional Impression: Lymphedema of extremity ER Course Issue with cellulitis secondary to ulceration from her lymphedema. No evidence of DVT. No evidence of septic joint or necrotizing fasciitis. She grew out MRSA. We'll discharge home on 3 weeks of antibiotics. Last Vital Signs Date Time Temp Pulse Resp B/P (MAP) Pulse Ox O2 Delivery O2 Flow Rate FiO2 12/12/17 04:03 98.3 86 18 120/77 96 Room Air 98.2 Status: unchanged Disposition: HOME, SELF-CARE Condition: Stable Scripts Mupirocin* (MUPIROCIN*) 22 Gm Oint...g. 1 APPLIC TOPIC BID, #88 GM Prov: PAUL CONTRERAS M.D. 12/12/17 Trimethoprim/Sulfamethoxazole 160/800* (BACTRIM DS TABLET*) 1 Each Tablet 1 TAB ORAL Q12H, #42 TAB 0 Refills Prov: PAUL CONTRERAS M.D. 12/12/17 Additional Instructions: Clean wound initially with hydrogen peroxide. Then apply antibiotic ointment. Follow-up with your doctor in 7 days for recheck. Return if symptom worsen. PAUL CONTRERAS M.D. December 12, 2017 04:39
[2017-12-12] MEDS ORDERED: Vancomycin 500 MG in D5W 110 ML IVPB ONE (04:45)
[2017-12-12] MEDS ORDERED: Vancomycin 1 GM in D5W 275 ML IVPB ONE (04:45)
[2017-12-12 05:30] VITALS: BP 120/70
[2017-12-12 05:40] LABS: EOSINOPHILS % (AUTO) 1.2 % (0.0-3.0); HEMATOCRIT 37.8 % (37.0-47.0); HEMOGLOBIN 13.6 G/DL (12.0-16.0); MEAN CORPUSCULAR VOLUME 88 FL (80-99); MONOCYTES % (AUTO) 8.5 % (1.0-10.0); NEUTROPHILS % (AUTO) 54.4 % (45.0-75.0); PLATELET COUNT 183 K/UL (150-450); RED BLOOD COUNT 4.32 M/UL (4.20-5.40); RED CELL DISTRIBUTION WIDTH 11.5 % (11.6-14.8); WHITE BLOOD COUNT 8.3 K/UL (4.8-10.8)
[2017-12-12 05:46] LABS: ANION GAP 6 mmol/L (5-15); BLOOD UREA NITROGEN 9 mg/dL (7-18); CALCIUM 9.7 MG/DL (8.5-10.1); CARBON DIOXIDE 28 MMOL/L (21-32); CHLORIDE 103 MMOL/L (98-107); CREATININE 0.6 MG/DL (0.55-1.30); POTASSIUM 3.9 MMOL/L (3.5-5.1); SODIUM 137 MMOL/L (136-145)
[2017-12-12] MEDS ORDERED: Bacitracin Oint UD TOPIC ONE (06:00)
[2017-12-12 07:45] VITALS: BP 121/71
== END 2017-12-12 07:49 | disposition home or self-care (01) ==
LOC: EMR 04:30
DX: L03.116 Cellulitis of left lower limb (principal); I89.0 Lymphedema, not elsewhere classified; J45.909 Unspecified asthma, uncomplicated; Z88.8 Allergy status to other drugs, medicaments and biological substances; Z88.1 Allergy status to other antibiotic agents; Z91.040 Latex allergy status
CPT/HCPCS: 36415; 80048; 85025; 96361; 96374; 99284; J3370

== ENCOUNTER 2018-04-22 17:08 | Emergency (ER) | payer OTHER ==
[~2018-04-22] VITALS: Ht 167.6 cm; Wt 81.6 kg
[~2018-04-22 17:08] MED LIST changes: +BACTRIM DS TAB1 EAC1 ORAL; +MUPIROCIN22 GM TOPIC
[2018-04-22 17:13] VITALS: BP 147/89
[2018-04-22] MEDS ORDERED: Acetaminophen 500mg (ES) tab ORAL ONE (17:45)
[2018-04-22] MEDS ORDERED: Albuterol/Ipratropium 3ml neb HHN ONE (17:45)
--- NOTE | 2018-04-22 18:39 | Diagnostic Imaging Report ---
History: CP Exam: XR CXR 1 VIEW Comparison: 11/11/2017 FINDINGS: The lungs are clear. The cardiac and mediastinal contours are within limits. The visualized osseous structures appear within limits. IMPRESSION: No evidence of acute disease.
[2018-04-22 18:47] LABS: BASOPHILS % (AUTO) 1.1 % (0.0-2.0); EOSINOPHILS % (AUTO) 0.5 % (0.0-3.0); HEMATOCRIT 39.7 % (37.0-47.0); HEMOGLOBIN 13.9 G/DL (12.0-16.0); LYMPHOCYTES % (AUTO) 23.9 % (20.0-45.0); MEAN CORPUSCULAR VOLUME 87 FL (80-99); NEUTROPHILS % (AUTO) 68.4 % (45.0-75.0); PLATELET COUNT 245 K/UL (150-450); RED BLOOD COUNT 4.54 M/UL (4.20-5.40); RED CELL DISTRIBUTION WIDTH 11.7 % (11.6-14.8); WHITE BLOOD COUNT 11.2 K/UL (4.8-10.8)
[2018-04-22 18:52] LABS: ANION GAP 7 mmol/L (5-15); BLOOD UREA NITROGEN 6 mg/dL (7-18); CALCIUM 10.3 MG/DL (8.5-10.1); CARBON DIOXIDE 27 MMOL/L (21-32); CHLORIDE 107 MMOL/L (98-107); CREATININE 0.7 MG/DL (0.55-1.30); POTASSIUM 3.1 MMOL/L (3.5-5.1); SODIUM 141 MMOL/L (136-145)
[2018-04-22] MEDS ORDERED: TRAMADOL HCL50 MG ORAL (19:05)
[2018-04-22 19:07] LABS: ALANINE AMINOTRANSFERASE 34 U/L (12-78); ALKALINE PHOSPHATASE 73 U/L (46-116); ASPARTATE AMINO TRANSFERASE 14 U/L (15-37); BILIRUBIN,TOTAL 0.4 MG/DL (0.2-1.0); CREATINE KINASE 74 U/L (26-308)
[2018-04-22 19:20] VITALS: BP 147/89
--- NOTE | 2018-04-23 00:09 | Emergency Room Report ---
History of Present Illness General Chief Complaint: Chest Pain Source: Patient Present Illness HPI Patient is a 47-year-old female presented after increased chest discomfort. Patient gradual onset of symptoms. The patient noted to have prior history of lung disease. She also had prior history of anxiety. The patient the had previously been followed by Dr. Tavera. She was noted to have prior history of venous stasis ulcers to her lower extremities. Allergies: Coded Allergies: AZITHROMYCIN (Verified Allergy, Unknown, 11/11/17) fever, seizure CELECOXIB (Verified Allergy, Unknown, 11/11/17) Heart palpitations CITRUS AND DERIVATIVES (Verified Allergy, Unknown, 11/11/17) uti ERYTHROMYCIN BASE (Verified Allergy, Unknown, 12/12/17) GABAPENTIN (Verified Allergy, Unknown, 11/11/17) migraine LATEX (Verified Allergy, Unknown, Rash, 11/11/17) PREGABALIN (Verified Allergy, Unknown, 11/11/17) migraine [place] (Verified Allergy, Unknown, 11/11/17) hayfever Patient History Now: No Reviewed Nursing Documentation: PMH: Agreed; PSxH: Agreed Nursing Documentation-PMH Past Medical History: No History, Except For Hx Cardiac Problems: Yes - Mitral Valve Prolapse Hx Asthma: Yes Hx COPD: No Hx Diabetes: No Physical Exam Vital Signs Date Time Temp Pulse Resp B/P (MAP) Pulse Ox O2 Delivery O2 Flow Rate FiO2 04/22/18 17:09 98.2 128 24 147/89 96 Room Air 98.2 04/22/18 17:44 21 Medical Decision Making Diagnostic Impression: Primary Impression: Atypical chest pain Additional Impressions: COPD (chronic obstructive pulmonary disease) Venous stasis dermatitis ER Course Patient presented for chest pain. Differential diagnosis included but was not limited to acute coronary syndrome, pulmonary embolism, pneumonia, aortic dissection, shingles, pneumothorax, aortic dissection, esophageal rupture, pericarditis. Patient has a benign exam and does not appear to require any further imaging or laboratory testing at this time. Patient was given breathing treatment. Patient was noted to have improvement of symptoms.Laboratory testing showed no evidence of myocardial injury. The patient is advised to follow up with primary care doctor in 1-2 days. Patient is advised to return if any worsening condition or if any changes in status that are concerning. This report is dictated with [employer] core composer feeder software which may occasionally lead to discrepancies related to use of this software. Labs Test 04/22/18 18:25 White Blood Count 11.2 K/UL (4.8-10.8) Red Blood Count 4.54 M/UL (4.20-5.40) Hemoglobin 13.9 G/DL (12.0-16.0) Hematocrit 39.7 % (37.0-47.0) Mean Corpuscular Volume 87 FL (80-99) Mean Corpuscular Hemoglobin 30.7 PG (27.0-31.0) Mean Corpuscular Hemoglobin Concent 35.1 G/DL (32.0-36.0) Red Cell Distribution Width 11.7 % (11.6-14.8) Platelet Count 245 K/UL (150-450) Mean Platelet Volume 5.0 FL (6.5-10.1) Neutrophils (%) (Auto) 68.4 % (45.0-75.0) Lymphocytes (%) (Auto) 23.9 % (20.0-45.0) Monocytes (%) (Auto) 6.0 % (1.0-10.0) Eosinophils (%) (Auto) 0.5 % (0.0-3.0) Basophils (%) (Auto) 1.1 % (0.0-2.0) Urine HCG, Qualitative Negative (NEGATIVE) Sodium Level 141 MMOL/L (136-145) Potassium Level 3.1 MMOL/L (3.5-5.1) Chloride Level 107 MMOL/L (98-107) Carbon Dioxide Level 27 MMOL/L (21-32) Anion Gap 7 mmol/L (5-15) Blood Urea Nitrogen 6 mg/dL (7-18) Creatinine 0.7 MG/DL (0.55-1.30) Estimat Glomerular Filtration Rate > 60 mL/min (>60) Glucose Level 100 MG/DL (74-106) Calcium Level 10.3 MG/DL (8.5-10.1) Total Bilirubin 0.4 MG/DL (0.2-1.0) Aspartate Amino Transf (AST/SGOT) 14 U/L (15-37) Alanine Aminotransferase (ALT/SGPT) 34 U/L (12-78) Alkaline Phosphatase 73 U/L (46-116) Total Creatine Kinase 74 U/L (26-308) Creatine Kinase MB 1.0 NG/ML (0.0-3.6) Creatine Kinase MB Relative Index 1.3 Troponin I 0.003 ng/mL (0.000-0.056) Pro-B-Type Natriuretic Peptide 18 pg/mL (0-125) Total Protein 8.0 G/DL (6.4-8.2) Albumin 4.0 G/DL (3.4-5.0) Globulin 4.0 g/dL Albumin/Globulin Ratio 1.0 (1.0-2.7) Lipase 77 U/L (73-393) Urine Opiates Screen Negative (NEGATIVE) Urine Barbiturates Screen Negative (NEGATIVE) Phencyclidine (PCP) Screen Negative (NEGATIVE) Urine Amphetamines Screen Negative (NEGATIVE) Urine Benzodiazepines Screen Negative (NEGATIVE) Urine Cocaine Screen Negative (NEGATIVE) Urine Marijuana (THC) Screen Negative (NEGATIVE) EKG Diagnostic Results Rate: normal Rhythm: NSR ST Segments: no acute changes Last Vital Signs Date Time Temp Pulse Resp B/P (MAP) Pulse Ox O2 Delivery O2 Flow Rate FiO2 04/22/18 18:52 98.2 04/22/18 17:50 96 20 Room Air 21 04/22/18 17:50 97 04/22/18 17:13 147/89 Status: improved Disposition: HOME, SELF-CARE Condition: Stable Scripts Tramadol Hcl* (ULTRAM*) 50 Mg Tablet 50 MG ORAL Q6H PRN for For Pain, #15 TAB 0 Refills Prov: Adams Moyer MD 04/22/18 Referrals: Rico Tavera MD (PCP) Patient Instructions: Nonspecific Chest Pain Adams Moyer MD Apr 23, 2018 00:09
--- NOTE | 2018-04-23 15:41 | Cardiology Report ---
APPROVED REPORT EKG Measurement Heart [id number] Normal sinus rhythm Normal ECG
== END 2018-04-22 19:20 | disposition home or self-care (01) ==
LOC: EMR 19:15
DX: J44.9 Chronic obstructive pulmonary disease, unspecified (principal); R07.89 Other chest pain; I87.2 Venous insufficiency (chronic) (peripheral)
CPT/HCPCS: 36415; 71045; 80053; 80307; 81025; 82550; 82553; 83690; 83880; 84484; 85025; 93005; 94640; 94664; 99284; J7620; J8499

== ENCOUNTER 2019-12-13 09:30 | Emergency (ER) | payer OTHER ==
[~2019-12-13] VITALS: Ht 165.1 cm; Wt 68.0 kg
[~2019-12-13 09:30] MED LIST changes: +TRAMADOL HCL50 MG ORAL
[2019-12-13 09:36] VITALS: BP 122/71
[2019-12-13] MEDS ORDERED: AMOXICILLIN500 MG ORAL (10:02)
[2019-12-13] MEDS ORDERED: NORCO 5-325 TA1 EAC1 ORAL (10:02)
[2019-12-13 10:08] VITALS: BP 134/75
--- NOTE | 2019-12-13 10:11 | Emergency Room Report ---
History of Present Illness General Chief Complaint: Skin Rash/Abscess Source: Patient Present Illness HPI Disclaimer: Please note that this report is being documented using DRAGON technology. This can lead to erroneous entry secondary to incorrect interpretation by the dictating instrument. HPI: 49-year-old female presents for dental pain and possible dental abscess. She states she noted dental pain about 2 days ago and this morning developed some swelling along her right cheek. She denies any fevers, nausea, vomiting. She is an active smoker. Pain is currently 10 out of 10 worse with palpation and movement of her jaw. She does not currently have a dentist but is currently working on dentistry follow-up. Allergies: Coded Allergies: AZITHROMYCIN (Verified Allergy, Unknown, 11/11/17) fever, seizure CELECOXIB (Verified Allergy, Unknown, 11/11/17) Heart palpitations CITRUS AND DERIVATIVES (Verified Allergy, Unknown, 11/11/17) uti ERYTHROMYCIN BASE (Verified Allergy, Unknown, 12/12/17) GABAPENTIN (Verified Allergy, Unknown, 11/11/17) migraine LATEX (Verified Allergy, Unknown, Rash, 11/11/17) PREGABALIN (Verified Allergy, Unknown, 11/11/17) migraine [place] (Verified Allergy, Unknown, 11/11/17) hayfever COVID-19 Screening Contact w/high risk pt: No Recent Travel to affected area: No Experienced COVID-19 symptoms?: No Patient History Last Menstrual Period: now Now: No Reviewed Nursing Documentation: PMH: Agreed; PSxH: Agreed Nursing Documentation-PMH Past Medical History: No History, Except For Hx Cardiac Problems: Yes - Mitral Valve Prolapse Hx Asthma: Yes Hx COPD: No Hx Diabetes: No Review of Systems All Other Systems: negative except mentioned in HPI Physical Exam Vital Signs Date Time Temp Pulse Resp B/P (MAP) Pulse Ox O2 Delivery O2 Flow Rate FiO2 12/13/19 09:36 98.2 93 20 122/71 (88) 96 Room Air Sp02 EP Interpretation: reviewed, normal General Appearance: well appearing, no apparent distress Head: normocephalic, atraumatic Eyes: bilateral eye PERRL, bilateral eye EOMI ENT: hearing grossly normal, moist mucus membranes, other - Fractured right lower molar noted with mild tenderness. Swelling along right jawline noted with tenderness Neck: full range of motion, supple Respiratory: lungs clear, normal breath sounds, no rhonchi, no respiratory distress, no retraction, no wheezing Cardiovascular #1: normal peripheral pulses, regular rate, rhythm, no murmur Gastrointestinal: non tender, soft, non-distended, no guarding Neurologic: alert, oriented x3, no focal defects Skin: normal color, warm/dry Medical Decision Making Diagnostic Impression: Primary Impression: Dental abscess ER Course MDM: Patient presented with dental pain and swelling along her right cheek. Suspect dental abscess. Less likely Ludewig's angina or other deep space infection. Patient will be discharged with p.o. antibiotics, oral analgesia, commended follow-up with dentistry and referrals were provided. Recommended smoking cessation. Patient stable for discharge with return precautions. Last Vital Signs Date Time Temp Pulse Resp B/P (MAP) Pulse Ox O2 Delivery O2 Flow Rate FiO2 12/13/19 09:36 98.2 93 20 122/71 96 Room Air Disposition: HOME, SELF-CARE Condition: Stable Scripts Hydrocodone Bit/Acetaminophen 5-325* (NORCO 5-325 TABLET*) 1 Each Tablet 1 TAB ORAL Q6H PRN for For Pain, #10 TAB 0 Refills Prov: Charles Michael M.D. 12/13/19 Amoxicillin* (AMOXIL*) 500 Mg Capsule 500 MG ORAL TWICE A DAY, #20 CAP Prov: Charles Michael M.D. 12/13/19 Referrals: [facility](age 2-12) - Orthodontic Clinic - Hours: Tue,Tue,, 8:15am and 1pm (new patient screening), . 1pm. Emergency clinic Tuesday - Tuesday 8:30am and 1pm, Tues. 1pm. *Call to check if clinic is open; No appointment necessary for the first visit ( new patient screening), Arrive 15-30 minutes early as it is first come, first serve. [facility] INFO: New Patient Screening: Tue- 8am-1pm Tue- 9am -5pm and Tue 2pm-5pm Patient Instructions: Dental Abscess, [id number] Additional Instructions: Patient is instructed to follow-up with her primary dentist r, primary care clinic or [facility] in 1 to 2 days. Patient instructed to return for any worsening symptoms or concerns. Please note that the documentation in this note was used with [employer] dictation technology. Pleae be advised that this may lead to erroneous text due to misinterpretation by the dictation software Charles Michael M.D. December 13, 2019 10:11
== END 2019-12-13 10:08 | disposition home or self-care (01) ==
LOC: EMR 09:45
DX: K04.7 Periapical abscess without sinus (principal); J45.909 Unspecified asthma, uncomplicated; Z88.1 Allergy status to other antibiotic agents; Z91.040 Latex allergy status; Z88.8 Allergy status to other drugs, medicaments and biological substances; Z91.018 Allergy to other foods; Z91.09 Other allergy status, other than to drugs and biological substances
CPT/HCPCS: 99282

== ENCOUNTER 2020-09-07 21:52 | Inpatient (IN) | payer OTHER ==
[~2020-09-07] VITALS: Ht 167.6 cm; Wt 90.3 kg
[~2020-09-07 21:52] MED LIST changes: +AMOXICILLIN500 MG ORAL; +NORCO 5-325 TA1 EAC1 ORAL
--- NOTE | 2020-09-07 22:10 | NUR ---
ED Nurse Note: Pt comes in c/o bilateral leg pain/swelling for the last 2 weeks. Had cellutitis in both previously and states it feels and looks similar to that time. Pt is resting comfortably on stretcher, vs wnl, A&Ox3, breathing on RA without issues. IV 20g est in right AC, labs drawn, swab of site done and sent to lab. Pt states pain is 6/10. MD made aware. Will continue to monitor.
--- NOTE | 2020-09-07 22:36 | Emergency Room Report ---
History of Present Illness General Chief Complaint: Edema Source: Patient Present Illness HPI This is a 50-year-old female with a history of cellulitis to her lower extremities. She was admitted here few years ago and grew out MRSA. She presents with chief complaint of lower extremity swelling and redness. This been ongoing for 2 weeks. This is a recurrent problem. She said it started draining couple days ago. No fever chills. Pain is throbbing and burning in nature. Redness extended up to her proximal tib-fib area. Worse with scratching. Better with rest. Pain is 8 out of 10. No trauma. Allergies: Coded Allergies: AZITHROMYCIN (Verified Allergy, Unknown, 11/11/17) fever, seizure CELECOXIB (Verified Allergy, Unknown, 11/11/17) Heart palpitations CITRUS AND DERIVATIVES (Verified Allergy, Unknown, 11/11/17) uti ERYTHROMYCIN BASE (Verified Allergy, Unknown, 12/12/17) GABAPENTIN (Verified Allergy, Unknown, 11/11/17) migraine LATEX (Verified Allergy, Unknown, Rash, 11/11/17) PREGABALIN (Verified Allergy, Unknown, 11/11/17) migraine [place] (Verified Allergy, Unknown, 11/11/17) hayfever COVID-19 Screening Contact w/high risk pt: No Recent Travel to affected area: No Experienced COVID-19 symptoms?: No COVID-19 Testing performed PERFORMANCE IMPROVEMENT SPECIALIST: No Patient History Past Medical History: see triage record, old chart reviewed, asthma Past Surgical History: none Pertinent Family History: none Social History: Denies: smoking Immunizations: other Reviewed Nursing Documentation: PMH: Agreed; PSxH: Agreed Nursing Documentation-PMH Hx Cardiac Problems: Yes - Mitral Valve Prolapse Hx Asthma: Yes Hx COPD: No Hx Diabetes: No Review of Systems Eye: Denies: eye pain, blurred vision ENT: Denies: ear pain, nose congestion, throat swelling Respiratory: Denies: cough, shortness of breath Cardiovascular: Denies: chest pain, palpitations Gastrointestinal: Denies: abdominal pain, diarrhea, nausea, vomiting Musculoskeletal: Denies: back pain, joint pain Skin: Reports: rash Neurological: Denies: headache, numbness Endocrine: Denies: increased thirst, increased urine Hematologic/Lymphatic: Denies: easy bruising All Other Systems: negative except mentioned in HPI Physical Exam Vital Signs Date Time Temp Pulse Resp B/P (MAP) Pulse Ox O2 Delivery O2 Flow Rate FiO2 09/07/20 22:04 98.1 120 20 123/65 (84) 95 Room Air Vitals with tachycardia Sp02 EP Interpretation: reviewed, normal General Appearance: well appearing, no apparent distress, alert Head: normocephalic, atraumatic Eyes: bilateral eye PERRL, bilateral eye EOMI ENT: hearing grossly normal, normal pharynx Neck: full range of motion, supple, no meningismus Respiratory: chest non-tender, lungs clear, normal breath sounds Cardiovascular #1: regular rate, rhythm, no murmur Gastrointestinal: normal bowel sounds, non tender, no mass, no organomegaly, no bruit, non-distended Musculoskeletal: back normal, normal range of motion, gait/station normal, other - Bilateral lower extremities with erythema from ankle to just distal to the knee. On the left side, distally there is some oozing. Pulses normal. Psychiatric: mood/affect normal Medical Decision Making Diagnostic Impression: Primary Impression: Lower extremity cellulitis Qualified Codes: L03.119 - Cellulitis of unspecified part of limb ER Course Patient with bilateral lower extremity cellulitis, left greater than right. Most likely MRSA. I cover her with Zosyn and vancomycin. Because of the extensiveness of her cellulitis, will admit for IV antibiotics. Culture sent. This is unlikely to be bilateral DVT. She had ultrasound study done before and was negative. No evidence of necrotizing fasciitis or deep infection. I contacted Dr. Castillo for admission. Last Vital Signs Date Time Temp Pulse Resp B/P (MAP) Pulse Ox O2 Delivery O2 Flow Rate FiO2 09/07/20 22:04 98.1 120 20 123/65 (84) 95 Room Air Status: improved Disposition: ADMITTED INPATIENT Condition: Serious Referrals: NON PHYSICIAN (PCP) Sam Choudhury MD Sep 07, 2020 22:36
[2020-09-07 22:37] VITALS: BP 137/75
[2020-09-07] MEDS ORDERED: Vancomycin 1.5gm/300ml Premix 300 ML IVPB ONE (22:45)
[2020-09-07] MEDS ORDERED: Piperacillin/Tazobactam 3.375 GM in NS 110 ML IVPB ONE (22:45)
[2020-09-07 23:29] LABS: ANION GAP 6 mmol/L (5-15); BLOOD UREA NITROGEN 11 mg/dL (7-18); CALCIUM 9.2 MG/DL (8.5-10.1); CARBON DIOXIDE 28 MMOL/L (21-32); CHLORIDE 106 MMOL/L (98-107); CREATININE 0.7 MG/DL (0.55-1.30); POTASSIUM 3.9 MMOL/L (3.5-5.1); SODIUM 140 MMOL/L (136-145)
[2020-09-07 23:33] LABS: BASOPHILS % (AUTO) 1.7 % (0.0-2.0); EOSINOPHILS % (AUTO) 4.3 % (0.0-3.0); HEMATOCRIT 36.1 % (37.0-47.0); HEMOGLOBIN 12.3 G/DL (12.0-16.0); LYMPHOCYTES % (AUTO) 24.8 % (20.0-45.0); MEAN CORPUSCULAR VOLUME 89 FL (80-99); MONOCYTES % (AUTO) 8.3 % (1.0-10.0); PLATELET COUNT 204 K/UL (150-450); RED BLOOD COUNT 4.04 M/UL (4.20-5.40); RED CELL DISTRIBUTION WIDTH 12.3 % (11.6-14.8); WHITE BLOOD COUNT 9.1 K/UL (4.8-10.8)
[2020-09-08] MEDS ORDERED: Morphine Sulfate 4mg/ml Inj (IV USE ONLY) IVP ONE
[2020-09-08] MEDS ORDERED: Morphine Sulfate 4mg/ml Inj (IV USE ONLY) IVP PRN
--- NOTE | 2020-09-08 00:13 | NUR ---
ED Nurse Note: pt resting comfortably on stretcher awaiting transport. a&ox3, breathing without complications on RA. VS WLN. Pain is down to 3/10 after morphine. pts belongings are loaded onto bed with pt.
--- NOTE | 2020-09-08 00:14 | NUR ---
TRANSFER TO FLOOR: Patient transferred to [facility] as ordered, per MD . Belongings given to patient on stretcher for transport.
--- NOTE | 2020-09-08 00:30 | NUR ---
ED Nurse Note: pt was transported to ED without report given beforehand. Called upstairs and put on hold then told RN would call back. Awaiting call.
[2020-09-08 01:00] VITALS: BP 144/81
--- NOTE | 2020-09-08 01:00 | NUR ---
NURSES NOTE: Received pt from ED at approximately 0100. No outward s/s of distress noted. Breathing pattern is even and unlabored on RA. Pt states pain is 2/10 in BLE. Head to toe assessment completed. Both lower extremities are reddened, warm to touch, has noticeable swelling and causes intermitted pain for pt. VS WNL. IV R AC is intact, flushes well. IVF running without incident . All due medications will be administered. Pt oriented to room. Bed at lowest level, call light within reach, pt will continue to be monitored.
[2020-09-08 04:00] VITALS: BP 110/66
[2020-09-08] MEDS ORDERED: Morphine Sulfate 2mg/ml Inj(IV/IM USE ONLY) IVP PRN (07:15)
--- NOTE | 2020-09-08 07:51 | NUR ---
NURSE HAND-OFF: Important Events on Shift:[New orders processed this AM for admission orders after calling [facility] [phone]] Patient Status: [stable] Diet: [regular] Pending Orders: [n/a] Pending Results/Labs:[n/a] Pending MD notification:[n/a] Latest Vital Signs: Temperature 97.7 , Pulse 99 , B/P 110 /66 , Respiratory Rate 20 , O2 SAT 99 , Room Air, O2 Flow Rate . Vital Sign Comment: [wnl] Latest Whitten Fall Score: 35 Fall Risk: Medium Risk Safety Measures: Call light Within Reach, Bed Alarm Zone 2, Side Rails Side Rails x2, Bed position Low and Locked. Fall Precautions: Yellow Socks Patient Fall Education Report given to [kimberly álvarez].
--- NOTE | 2020-09-08 07:55 | NUR ---
NURSE NOTES: Patient lying in bed awake. Complain of pain 4/10 on bilateral legs and pain medication given by warehouse worker 2nd shift nurse. Will continue to monitor. Edema and redness noted on bilateral lower legs. IV dressing intact and dry. Bed lowest position and side rails up. Call light within reach. Will continue to monitor.
[2020-09-08 08:00] VITALS: BP 130/72
[2020-09-08] MEDS ORDERED: Vancomycin 1gm/D5W 275ml IVPB SCH ×4 (08:30)
[2020-09-08] MEDS: Vancomycin 1gm/NS 275ml IVPB SCH ×6 (08:39→23:01)
--- NOTE | 2020-09-08 09:00 | NUR ---
CASE MANAGEMENT:REVIEW 50 YR OLD FEMALE WALKED INTO ER CC: BLE SWELLING X2 WEEKS SI:BLE CELLULITIS 98.0 120 20 123/65 95% ON RA IS: IV VANCOMYCIN X1 ZOSYN X1 1 L NS BOLUS BLOOD CX WOUND CX : TO MED/SURG UNIT
--- NOTE | 2020-09-08 09:30 | Consultation ---
Consult Note Consult Note DATE OF CONSULTATION: 09/08/2020 CONSULTING PHYSICIAN: Rogers Rodríguez MD. ATTENDING PHYSICIAN: Dr. Castillo REASON FOR CONSULTATION: Asthma and smoking HISTORY OF PRESENT ILLNESS: This is a 50-year-old female with history of cellulitis to her lower extremities who presented to the ED for evaluation of lower extremity swelling and redness x2 weeks. She reports similar history 3 years ago which grew out MRSA. She reports 3-day history of oozing from the left lower extremity. Pain is throbbing and burning in nature. Patient received antibiotics and pain medication and was admitted to the hospital for further management. We have been consulted for history of asthma, and smoking. She reports her asthma is a distant history and denies use of inhaler at home. She is a current smoker x30 years. She denies SOB. She reports she was never tested for COVID-19 and denies sick contact, or travel history. PAST MEDICAL HISTORY: Hx of asthma MEDICATIONS: Acetaminophen, vitamin C, multivitamins ALLERGIES: Azithromycin, celecoxib, citrus and derivatives, erythromycin base, gabapentin, latex, pregabalin, white [place] FAMILY HISTORY: Unknown PERSONAL/SOCIAL HISTORY: Lives at home with her REVIEW OF SYSTEMS: Negative except mentioned in HPI PHYSICAL EXAMINATION: VITAL SIGNS: Blood [id number]/66, heart rate 99, respiratory rate20, weight 90 kg, height 167 cm Generla: Pt sitting up in bed, in mild distress from leg pain HEENT: Head exam reveals that the head is normocephalic, atraumatic without deformity or unusual swelling. Pupils are PERRLA. CHEST AND LUNGS: Reveals clear, normal, symmetrical breath sounds with no adventitious sounds. CARDIOVASCULAR: Reveals normal S1, S2 without murmurs, rubs, or clicks. ABDOMEN: Soft with no tenderness or organomegaly. RECTAL: Deferred. MUSCULOSKELETAL: nonpitting edema in LE, worse on the left. Left anterior tibial are shows scarring from the previous cellulitis. Tense skin, warm. NEUROLOGICAL: Alert and oriented x3 , nonfocal LABORATORY DATA: Laboratory testing shows WBC 9.1, Hgb 12.3 Chemistries show unremarkable result Assessment/Plan 1. Hx of asthma - Distant hx of asthma; denies use of inhaler at home - no wheezing or SOB on exam 2. Current smoker - Extensive hx of smoking tobacco - Denies lung cancer in family hx - Patient educated on smoking cessation, pt agrees to reconsider about her smoking habits 3. Risk of DVT - The previous venous duplex in 2018 was negative 4. B/l LE cellulitis - On Vancomycin and pain control We appreciate your consult. Upon interview, patient is medically stable from pulmonary standpoint. Patient was strongly encouraged to consider smoking cessation given her extensive history. We will sign off. The care plan for this patient was discussed with my supervising physician. Time spent for this case was approximately 31 minutes. Hay Sevilla Sep 08, 2020 09:30
--- NOTE | 2020-09-08 10:16 | History & Physical ---
History of Present Illness General Reason for Hospitalization: Edema Present Illness HPI This is a 50-year-old female with history of cellulitis to her lower extremities who presented to the ED for evaluation of lower extremity swelling and redness x2 weeks. She reports similar history 3 years ago which grew out MRSA. She reports 3-day history of oozing from the left lower extremity. Pain is throbbing and burning in nature. Patient received antibiotics and pain medication and was admitted to the hospital for further management. We have been consulted for history of asthma, and smoking. She reports her asthma is a distant history and denies use of inhaler at home. She is a current smoker x30 years. She denies SOB. She reports she was never tested for COVID-19 and denies sick contact, or travel history. PAST MEDICAL HISTORY: Hx of asthma MEDICATIONS: Acetaminophen, vitamin C, multivitamins ALLERGIES: Azithromycin, celecoxib, citrus and derivatives, erythromycin base, gabapentin, latex, pregabalin, white [place] FAMILY HISTORY: Unknown PERSONAL/SOCIAL HISTORY: Lives at home with her Allergies: Coded Allergies: AZITHROMYCIN (Verified Allergy, Unknown, 11/11/17) fever, seizure CELECOXIB (Verified Allergy, Unknown, 11/11/17) Heart palpitations CITRUS AND DERIVATIVES (Verified Allergy, Unknown, 11/11/17) uti ERYTHROMYCIN BASE (Verified Allergy, Unknown, 12/12/17) GABAPENTIN (Verified Allergy, Unknown, 11/11/17) migraine LATEX (Verified Allergy, Unknown, Rash, 11/11/17) PREGABALIN (Verified Allergy, Unknown, 11/11/17) migraine [place] (Verified Allergy, Unknown, 11/11/17) hayfever COVID-19 Screening Contact w/high risk pt: No Recent Travel to affected area: No Experienced COVID-19 symptoms?: No Medication History Scheduled Amoxicillin* (Amoxil*), 500 MG ORAL TWICE A DAY Ascorbic Acid* (Vitamin C*), 500 MG ORAL DAILY, (Reported) Ibuprofen (Motrin), 600 MG ORAL FOUR TIMES A DAY, (Reported) Multivitamins* (Multivitamins*), 1 TAB ORAL DAILY, (Reported) Mupirocin* (Mupirocin*), 1 APPLIC TOPIC BID Trimethoprim/Sulfamethoxazole 160/800* (Bactrim Ds Tablet*), 1 TAB ORAL Q12H Scheduled PRN Acetaminophen (Acetaminophen), 650 MG ORAL Q6H PRN for Prn Headache/Temp > 101, (Reported) Hydrocodone Bit/Acetaminophen 5-325* ([place] 5-325 Tablet*), 1 TAB ORAL Q6H PRN for For Pain Tramadol Hcl* (Ultram*), 50 MG ORAL Q6H PRN for For Pain Patient History Healthcare decision maker Resuscitation status Advanced Directive on File Review of Systems Review of Symptoms General ROS: no weight loss or fever Psychological ROS: no depression or mood changes, no memory loss Ophthalmic ROS: no visual changes or eye irritation ENT ROS: no nasal congestion, hearing loss, dizziness Allergy and Immunology ROS: no allergic symptoms or urticaria Hematological and Lymphatic ROS: no swollen glands, unusual bleeding or bruising Endocrine ROS: no polyuria, polydipsia, weight changes, temperature intolerance Respiratory ROS: no cough, shortness of breath, or wheezing Cardiovascular ROS: no chest pain or dyspnea on exertion Gastrointestinal ROS: denies abdominal pain, bright red blood in stool. Musculoskeletal ROS: no myalgias or arthralgias Neurological ROS: no TIA or stroke symptoms Dermatological ROS: LLE swelling and erythema Physical Exam Physical Exam General appearance: alert, cooperative, no distress, appears stated age Head: Normocephalic, without obvious abnormality, atraumatic Eyes: conjunctivae/corneas clear. PERRL, EOM's intact. Fundi benign Throat: Lips, mucosa, and tongue normal. Teeth and gums normal Neck: supple, symmetrical, trachea midline, no adenopathy, thyroid: not enlarged, symmetric, no tenderness/mass/nodules, no carotid bruit and no JVD Lungs: clear to auscultation bilaterally Heart: regular rate and rhythm, S1, S2 normal, no murmur, click, rub or gallop Abdomen: soft, non-tender. Bowel sounds normal. No masses, no organomegaly Extremities: LLE cellulitis Pulses: 2+ and symmetric Skin: Skin color, texture, turgor normal. No rashes or lesions Neurologic: Grossly normal Last 24 Hour Vital Signs Date Time Temp Pulse Resp B/P (MAP) Pulse Ox O2 Delivery O2 Flow Rate FiO2 09/08/20 09:00 Room Air 09/08/20 08:00 97.7 98 20 130/72 (91) 99 98 09/08/20 04:00 97.7 99 20 110/66 (81) 99 99 09/08/20 01:32 Room Air 09/08/20 01:00 97.4 107 20 144/81 (102) 99 107 09/07/20 22:37 99.0 109 21 137/75 97 Room Air 09/07/20 22:37 109 21 Room Air 09/07/20 22:04 98.1 120 20 123/65 (84) 95 Room Air Intake and Output 09/07/20 09/08/20 19:00 07:00 Intake Total 2600 ml Output Total 35 ml Balance 2565 ml Intake Oral 1500 ml IV Total 1100 ml Output Urine Total 35 ml # Voids 3 Laboratory Tests Test 09/07/20 22:30 White Blood Count 9.1 K/UL (4.8-10.8) Red Blood Count 4.04 M/UL (4.20-5.40) L Hemoglobin 12.3 G/DL (12.0-16.0) Hematocrit 36.1 % (37.0-47.0) L Mean Corpuscular Volume 89 FL (80-99) Mean Corpuscular Hemoglobin 30.5 PG (27.0-31.0) Mean Corpuscular Hemoglobin Concent 34.1 G/DL (32.0-36.0) Red Cell Distribution Width 12.3 % (11.6-14.8) Platelet Count 204 K/UL (150-450) Mean Platelet Volume 5.4 FL (6.5-10.1) L Neutrophils (%) (Auto) 61.0 % (45.0-75.0) Lymphocytes (%) (Auto) 24.8 % (20.0-45.0) Monocytes (%) (Auto) 8.3 % (1.0-10.0) Eosinophils (%) (Auto) 4.3 % (0.0-3.0) H Basophils (%) (Auto) 1.7 % (0.0-2.0) Sodium Level 140 MMOL/L (136-145) Potassium Level 3.9 MMOL/L (3.5-5.1) Chloride Level 106 MMOL/L (98-107) Carbon Dioxide Level 28 MMOL/L (21-32) Anion Gap 6 mmol/L (5-15) Blood Urea Nitrogen 11 mg/dL (7-18) Creatinine 0.7 MG/DL (0.55-1.30) Estimat Glomerular Filtration Rate > 60 mL/min (>60) Glucose Level 102 MG/DL (74-106) Calcium Level 9.2 MG/DL (8.5-10.1) Height (Feet): 5 Height (Inches): 6.00 Weight (Pounds): 199 Medications Current Medications Medications (Trade) Dose Ordered Sig/Jaye Route PRN Reason Start Time Stop Time Status Last Admin Dose Admin Acetaminophen (Tylenol) 650 mg Q4HR PRN ORAL TEMP>100.5 09/08/20 00:00 Acetaminophen/ Hydrocodone Bitart ([place] 5/325) 1 tab Q4H PRN ORAL Moderate Pain (Pain Scale 4-6) 09/08/20 07:15 09/15/20 07:14 Diphenhydramine HCl (Benadryl) 25 mg Q6H PRN ORAL [place] 09/08/20 07:15 10/08/20 07:14 Morphine Sulfate (Morphine Sulfate) 2 mg Q3H PRN IVP Severe pain (7-10) 09/08/20 07:15 09/15/20 07:14 Ondansetron HCl (Zofran) 4 mg PRN PRN IVP Nausea & Vomiting 09/08/20 00:00 Vancomycin HCl ([facility] pharmacy to dose) 1 ea DAILY MISC 09/08/20 09:00 10/08/20 08:59 09/08/20 08:51 Vancomycin HCl 1 gm/Sodium Chloride 275 ml @ 183.708 mls/hr Q8HR@0000,0800,1600 IVPB 09/08/20 08:30 09/13/20 08:29 09/08/20 08:39 Assessment/Plan Diagnosis [place] I: #LLE cellulitis #h/o MRSA infection #h/o asthma #h/p PreDM - admit to inpatient - [facility] per pharmacy - ID consulted - monitor cx - pain control - monitor labs - check arterial duplex - check venous duplex - check a1c - topical benadryl [facility] Hospital declaration I spent 70 minutes on this patient's case, and 35 minutes was dedicated to counseling and/or care coordination. MIPS ([employer]-based Incentive Payment System) Applicable CPT: 93782, 10385 CHECK ALL THAT ARE MET: Measure #5 (CHF): All ages. Prescribe KASHIF/ARB upon discharge for patients with left ventricular systolic dysfunction. If not, the reason is clearly documented in the medical chart. Measure #8 (CHF): All ages. Prescribe a beta edyvi upon discharge for patients with left ventricular systolic dysfunction. If not, the reason is clearly documented in the medical chart. Measure #47 Advance care plan or surrogate decision maker documented in the medical record. Measure #130 The provider has documented, updated, or reviewed the patients current medication list and has documented it in the patients note. Measure #374 (All): Send report to referring provider. Measure #407(Sepsis due to MSSA bacteremia): Age 18+ Patient treated with a beta-lactam antibiotic (Nafcillin, Oxacillin or Cefazolin) as definitive therapy. MEDICAL COMPLEXITY High complexity medical decision making (need 2/3 categories) Problem - need 4 points Acute/new problem with new plan for workup (4 points, 1 max) Acute/new problem without additional workup (3 points, 1 max) Unstable chronic problem actively being managed (2 point each, 2 max) Stable chronic problem actively being managed (1 point each, 2 max) Self-limited/transient process (constipation, muscle ache, etc) (1 point each, 2 max) Data - need 4 points Reviewed labs/imaging studies (1 points, 2 max) Independent review of imaging (EKG, xrays, etc) (2 points, 2 max) Discussed case with consult/other MD/RN (2 points, 2 max) High Risk - qualify if have one of the following: Severe exacerbation of acute problem, acute mental status change, IV narcotics, monitoring drug levels (vancomycin, INR, tacrolimus etc) Adriana Castillo M.D. Sep 08, 2020 10:16
[2020-09-08 12:00] VITALS: BP 116/72
--- NOTE | 2020-09-08 12:36 | NUR ---
NURSE NOTES: Given pain medication as ordered but patient said pain medication didn't worked and has same pain level. Spoke to regarding pain medication and new order received. Order read back and carried out.
--- NOTE | 2020-09-08 13:50 | Consultation ---
History of Present Illness General Date patient seen: Sep 08, 2020 Reason for Hospitalization: Edema Present Illness HPI This is a 50-year-old female with a history of cellulitis to her lower extremities. She was admitted here few years ago and grew out MRSA. She presents with chief complaint of lower extremity swelling and redness. This been ongoing for 2 weeks. This is a recurrent problem. She said it started draining couple days ago. No fever chills. Pain is throbbing and burning in nature. Redness extended up to her proximal tib-fib area. Worse with scratching. Better with rest. Pain is 8 out of 10. No trauma. surgery called to evaluate for possible abscess. Allergies: Coded Allergies: AZITHROMYCIN (Verified Allergy, Unknown, 11/11/17) fever, seizure CELECOXIB (Verified Allergy, Unknown, 11/11/17) Heart palpitations CITRUS AND DERIVATIVES (Verified Allergy, Unknown, 11/11/17) uti ERYTHROMYCIN BASE (Verified Allergy, Unknown, 12/12/17) GABAPENTIN (Verified Allergy, Unknown, 11/11/17) migraine LATEX (Verified Allergy, Unknown, Rash, 11/11/17) PREGABALIN (Verified Allergy, Unknown, 11/11/17) migraine [place] (Verified Allergy, Unknown, 11/11/17) hayfever COVID-19 Screening Contact w/high risk pt: No Recent Travel to affected area: No Experienced COVID-19 symptoms?: No Medication History Scheduled Amoxicillin* (Amoxil*), 500 MG ORAL TWICE A DAY Ascorbic Acid* (Vitamin C*), 500 MG ORAL DAILY, (Reported) Ibuprofen (Motrin), 600 MG ORAL FOUR TIMES A DAY, (Reported) Multivitamins* (Multivitamins*), 1 TAB ORAL DAILY, (Reported) Mupirocin* (Mupirocin*), 1 APPLIC TOPIC BID Trimethoprim/Sulfamethoxazole 160/800* (Bactrim Ds Tablet*), 1 TAB ORAL Q12H Scheduled PRN Acetaminophen (Acetaminophen), 650 MG ORAL Q6H PRN for Prn Headache/Temp > 101, (Reported) Hydrocodone Bit/Acetaminophen 5-325* ([place] 5-325 Tablet*), 1 TAB ORAL Q6H PRN for For Pain Tramadol Hcl* (Ultram*), 50 MG ORAL Q6H PRN for For Pain Patient History History Provided By: Patient, Medical Record, PMD Healthcare decision maker Resuscitation status Advanced Directive on File Past Medical/Surgical History Past Medical/Surgical History: (1) Diabetes mellitus (2) Edema (3) Left leg cellulitis (4) Venous stasis dermatitis (5) COPD (chronic obstructive pulmonary disease) (6) Atypical chest pain (7) Dental abscess (8) Lower extremity cellulitis Review of Systems Review of Symptoms General ROS: no weight loss or fever Psychological ROS: no depression or mood changes, no memory loss Ophthalmic ROS: no visual changes or eye irritation ENT ROS: no nasal congestion, hearing loss, dizziness Allergy and Immunology ROS: no allergic symptoms or urticaria Hematological and Lymphatic ROS: no swollen glands, unusual bleeding or bruising Endocrine ROS: no polyuria, polydipsia, weight changes, temperature intolerance Respiratory ROS: no cough, shortness of breath, or wheezing Cardiovascular ROS: no chest pain or dyspnea on exertion Gastrointestinal ROS: denies abdominal pain, bright red blood in stool. Musculoskeletal ROS: no myalgias or arthralgias Neurological ROS: no TIA or stroke symptoms Dermatological ROS: no new or changing skin lesions, rashes or pruritis Physical Exam Physical Exam General appearance: alert, cooperative, no distress, appears stated age Head: Normocephalic, without obvious abnormality, atraumatic Eyes: conjunctivae/corneas clear. PERRL, EOM's intact. Fundi benign Throat: Lips, mucosa, and tongue normal. Teeth and gums normal Neck: supple, symmetrical, trachea midline, no adenopathy, thyroid: not enlarged, symmetric, no tenderness/mass/nodules, no carotid bruit and no JVD Lungs: clear to auscultation bilaterally Heart: regular rate and rhythm, S1, S2 normal, no murmur, click, rub or gallop Abdomen: soft, non-tender. Bowel sounds normal. No masses, no organomegaly Extremities: extremities ++ cellulitis b/l edema Pulses: 2+ and symmetric Skin: Skin color, texture, turgor normal. No rashes or lesions Neurologic: Grossly normal Last 24 Hour Vital Signs Date Time Temp Pulse Resp B/P (MAP) Pulse Ox O2 Delivery O2 Flow Rate FiO2 09/08/20 12:00 98.7 97 20 116/72 (87) 97 97 09/08/20 09:00 Room Air 09/08/20 08:00 97.7 98 20 130/72 (91) 99 98 2/1/21 04:00 97.7 99 20 110/66 (81) 99 99 09/08/20 01:32 Room Air 09/08/20 01:00 97.4 107 20 144/81 (102) 99 107 09/07/20 22:37 99.0 109 21 137/75 97 Room Air 09/07/20 22:37 109 21 Room Air 09/07/20 22:04 98.1 120 20 123/65 (84) 95 Room Air Intake and Output 09/07/20 09/08/20 19:00 07:00 Intake Total 2600 ml Output Total 35 ml Balance 2565 ml Intake Oral 1500 ml IV Total 1100 ml Output Urine Total 35 ml # Voids 3 Laboratory Tests Test 09/07/20 22:30 White Blood Count 9.1 K/UL (4.8-10.8) Red Blood Count 4.04 M/UL (4.20-5.40) L Hemoglobin 12.3 G/DL (12.0-16.0) Hematocrit 36.1 % (37.0-47.0) L Mean Corpuscular Volume 89 FL (80-99) Mean Corpuscular Hemoglobin 30.5 PG (27.0-31.0) Mean Corpuscular Hemoglobin Concent 34.1 G/DL (32.0-36.0) Red Cell Distribution Width 12.3 % (11.6-14.8) Platelet Count 204 K/UL (150-450) Mean Platelet Volume 5.4 FL (6.5-10.1) L Neutrophils (%) (Auto) 61.0 % (45.0-75.0) Lymphocytes (%) (Auto) 24.8 % (20.0-45.0) Monocytes (%) (Auto) 8.3 % (1.0-10.0) Eosinophils (%) (Auto) 4.3 % (0.0-3.0) H Basophils (%) (Auto) 1.7 % (0.0-2.0) Sodium Level 140 MMOL/L (136-145) Potassium Level 3.9 MMOL/L (3.5-5.1) Chloride Level 106 MMOL/L (98-107) Carbon Dioxide Level 28 MMOL/L (21-32) Anion Gap 6 mmol/L (5-15) Blood Urea Nitrogen 11 mg/dL (7-18) Creatinine 0.7 MG/DL (0.55-1.30) Estimat Glomerular Filtration Rate > 60 mL/min (>60) Glucose Level 102 MG/DL (74-106) Calcium Level 9.2 MG/DL (8.5-10.1) Height (Feet): 5 Height (Inches): 6.00 Weight (Pounds): 199 Medications Current Medications Medications (Trade) Dose Ordered Sig/Jaye Route PRN Reason Start Time Stop Time Status Last Admin Dose Admin Acetaminophen/ Hydrocodone Bitart ([place] 5/325) 1 tab Q4H PRN ORAL Moderate Pain (Pain Scale 4-6) 09/08/20 07:15 09/15/20 07:14 Diphenhydramine HCl (Benadryl Cream) 1 applic THREE TIMES A DAY PRN TOPIC Itching 09/08/20 13:30 10/08/20 13:29 Diphenhydramine HCl (Benadryl) 25 mg Q6H PRN ORAL Itchig 09/08/20 07:15 10/08/20 07:14 Heparin Sodium (Porcine) (Heparin 5000 units/ml) 5,000 units EVERY 12 HOURS SUBQ 09/08/20 13:30 10/23/20 13:29 Morphine Sulfate (Morphine Sulfate) 4 mg Q3H PRN IVP Severe Pain (Pain Scale 7-10) 09/08/20 12:45 09/15/20 12:44 Vancomycin HCl (Vanco pharmacy to dose) 1 ea DAILY MISC 09/08/20 09:00 10/08/20 08:59 09/08/20 08:51 Vancomycin HCl 1 gm/Sodium Chloride 275 ml @ 183.708 mls/hr Q8HR@0000,0800,1600 IVPB 09/08/20 08:30 09/13/20 08:29 09/08/20 08:39 Assessment/Plan Problem List: (1) COPD (chronic obstructive pulmonary disease) ICD Codes: J44.9 - Chronic obstructive pulmonary disease, unspecified SNOMED: 77727691 (2) Dental abscess ICD Codes: K04.7 - Periapical abscess without sinus SNOMED: 344380887 (3) Diabetes mellitus ICD Codes: E11.9 - Type 2 diabetes mellitus without complications SNOMED: 62432667 (4) Edema ICD Codes: R60.9 - Edema, unspecified SNOMED: 689569647, 694613167 (5) Atypical chest pain ICD Codes: R07.89 - Other chest pain SNOMED: 861646678 (6) Venous stasis dermatitis ICD Codes: I87.2 - Venous insufficiency (chronic) (peripheral) SNOMED: 26828272 (7) Lower extremity cellulitis Assessment & Plan: Is a very pleasant 50-year-old female with history of bilateral lower extremity cellulitis prior on the left side with blistering which is resolved with antibiotics and presented with complaints of bilateral lower extremity cellulitis edema mainly on the right side pitting and cellulitis on the left with erythema on the posterior medial aspect. Patient with history of similar events no injury no trauma states she is not been scratching and does have multiple dry prior eschars from similar events in the past. Venous stasis ulcers identified. Tender on palpation warm but no palpable fluctuance. No abscess identified. No drainage. Recommend antibiotics and local care. Skin cream applied. Keep wounds clean. Keep lower extremities elevated while in bed. Okay to ambulate. Arterial and venous duplex ultrasounds pending. Will follow with recommendations. No acute surgical invention planned at this time thank you ICD Codes: L03.119 - Cellulitis of unspecified part of limb SNOMED: 974572415 Qualifiers: Qualified Codes: L03.119 - Cellulitis of unspecified part of limb (8) Left leg cellulitis ICD Codes: L03.116 - Cellulitis of left lower limb SNOMED: 081951120 Cuco Richards Sep 08, 2020 13:49
[2020-09-08] MEDS ORDERED: Tums 500mg ORAL PRN (14:00)
[2020-09-08] MEDS: Morphine Sulfate 4mg/ml Inj (IV USE ONLY) IVP PRN ×3 (14:00→23:02)
[2020-09-08] MEDS: Heparin 5000 units/ml inj SUBQ SCH ×2 (14:32→20:36)
--- NOTE | 2020-09-08 15:39 | NUR ---
INSURANCE CLINICALS/REVIEW FAXED TO [facility] [phone]
[2020-09-08 16:00] VITALS: BP 110/67
--- NOTE | 2020-09-08 19:11 | NUR ---
NURSE HAND-OFF: Important Events on Shift: New medications ordered Patient Status: Stable Diet: Regular Pending Orders: N/A Pending Results/Labs:CBC, BMP, Mg, Phos daily Pending MD notification:N/A Latest Vital Signs: Temperature 97.0 , Pulse 94 , B/P 110 /67 , Respiratory Rate 20 , O2 SAT 98 , Room Air, O2 Flow Rate . Vital Sign Comment: Stable Latest [place] Fall Score: 35 Fall Risk: Medium Risk Safety Measures: Call light Within Reach, Bed Alarm Zone 1, Side Rails Side Rails x2, Bed position Low and Locked. Fall Precautions: Yellow Socks Door Sign Patient Fall Education Report given to Pily QUESADA. Patient in stable condition.
--- NOTE | 2020-09-08 19:41 | NUR ---
NURSE NOTES: Received patient awake, alert, verbal, resting in bed, both legs elevated.
--- NOTE | 2020-09-08 19:44 | Consultation ---
DATE OF CONSULTATION: 09/08/2020 INFECTIOUS DISEASES CONSULTATION CONSULTING PHYSICIAN: Willie Mello MD PRIMARY ATTENDING PHYSICIAN: Adriana Castillo MD REASON FOR CONSULT: Cellulitis of legs. HISTORY OF PRESENT ILLNESS: This is a 50-year-old white female admitted yesterday complaining of pain, swelling, erythema in both lower extremities for 2 weeks. The patient was out of town and did not take any medication during this period. PAST MEDICAL HISTORY: Significant for cellulitis of left lower extremity in 2018. At that time, she had MRSA in culture. Mitral valve prolapse, asthma, nicotine dependence. She has history of diabetes, but resolved after weight loss. ALLERGIES: Allergic to azithromycin, citrus derivative, erythromycin, gabapentin, latex, pregabalin, [place] trees. MEDICATIONS: Vancomycin, [place], morphine, Tylenol, Zofran. SOCIAL HISTORY: Lives with boyfriend for 10 years. Smoking one to [id number] packs of cigarettes a day. No drug or alcohol abuse. REVIEW OF SYSTEMS: No fever. No chills. No coughing. No shortness of breath. No nausea. No vomiting. She has edema, pain, erythema in both lower extremities. PHYSICAL EXAMINATION: VITAL SIGNS: Temperature 97.7, pulse 98, and blood pressure is 130/72. GENERAL APPEARANCE: Overweight, obese. HEAD AND NECK: [place] conjunctivae. HEART: Normal rate. LUNGS: Clear. ABDOMEN: Soft. EXTREMITIES: She has edema of both legs, more severe in the left side. She has erythema of both lower extremities below the knee, again more severe in the left side. No significant discharge. She has chronic scar in the left lower extremity. NEUROLOGIC: She is awake, alert, and oriented x3. LABORATORY AND DIAGNOSTIC DATA: WBC 9.1, hemoglobin 12.3, hematocrit 36.1, platelets 204. Sodium 140, potassium 3.9, chloride 106, bicarb 28, BUN 11, creatinine 0.7, glucose 102. IMPRESSION: Cellulitis of legs, more severe in the left side. She has nicotine dependence, history of asthma, history of uterine fibroids, and history of mitral valve prolapse. RECOMMENDATION: Continue vancomycin. We will follow up the cultures and try to discharge the patient with p.o. antibiotics. At the end of my exam, I thank Dr. Castillo for involving me in the care of this patient. Willie Mello M.D. DR: JOEL JOB#: [id number] CC:
[2020-09-08 20:29] VITALS: BP 110/66
[2020-09-08] MEDS: DiphenhydrAMINE & Zinc 28g Cream TOPIC PRN (20:37)
[2020-09-09 00:06] VITALS: BP 118/79
[2020-09-09] MEDS: Morphine Sulfate 4mg/ml Inj (IV USE ONLY) IVP PRN ×2 (03:20→08:50)
[2020-09-09 04:30] VITALS: BP 112/58
--- NOTE | 2020-09-09 07:07 | NUR ---
NURSE HAND-OFF: Important Events on Shift:[]Elevate both lower extremities Patient Status: [] Diet: [] Pending Orders: [] Pending Results/Labs:[] Pending MD notification:[] Latest Vital Signs: Temperature 97.6 , Pulse 81 , B/P 112 /58 , Respiratory Rate 19 , O2 SAT 93 , Room Air, O2 Flow Rate . Vital Sign Comment: [] Latest [place]itten Fall Score: 35 Fall Risk: Medium Risk Safety Measures: Call light Within Reach, Bed Alarm Zone 1, Side Rails Side Rails x2, Bed position Low and Locked. Fall Precautions: Yellow Socks Door Sign Patient Fall Education Report given to [].
--- NOTE | 2020-09-09 07:10 | NUR ---
NURSE NOTES: Patient sitting in bed awake. Complain of pain 7/10 on bilateral legs. Will administer pain medication as ordered. Edema and redness on bilateral lower legs. IV dressing intact and dry. Bed lowest position and side rails up. Call light within reach. Will continue to monitor.
[2020-09-09 07:23] LABS: BASOPHILS % (AUTO) 1.9 % (0.0-2.0); EOSINOPHILS % (AUTO) 2.7 % (0.0-3.0); HEMATOCRIT 35.8 % (37.0-47.0); HEMOGLOBIN 12.1 G/DL (12.0-16.0); LYMPHOCYTES % (AUTO) 29.3 % (20.0-45.0); MEAN CORPUSCULAR VOLUME 90 FL (80-99); MONOCYTES % (AUTO) 8.2 % (1.0-10.0); NEUTROPHILS % (AUTO) 57.8 % (45.0-75.0); PLATELET COUNT 191 K/UL (150-450); RED BLOOD COUNT 3.96 M/UL (4.20-5.40); RED CELL DISTRIBUTION WIDTH 12.4 % (11.6-14.8); WHITE BLOOD COUNT 6.4 K/UL (4.8-10.8)
[2020-09-09 07:55] LABS: ANION GAP 6 mmol/L (5-15); BLOOD UREA NITROGEN 7 mg/dL (7-18); CALCIUM 8.9 MG/DL (8.5-10.1); CARBON DIOXIDE 27 MMOL/L (21-32); CHLORIDE 109 MMOL/L (98-107); CREATININE 0.5 MG/DL (0.55-1.30); POTASSIUM 4.1 MMOL/L (3.5-5.1); SODIUM 142 MMOL/L (136-145)
[2020-09-09 08:00] VITALS: BP 123/70
[2020-09-09] MEDS: Vancomycin 1gm/NS 275ml IVPB SCH ×2 (08:34)
[2020-09-09] MEDS: Heparin 5000 units/ml inj SUBQ SCH ×2 (08:49→21:31)
--- NOTE | 2020-09-09 09:08 | Internal Med Progress Note ---
Subjective Physician Name Adriana Castillo Attending Physician Adriana Castillo M.D. Current Medications Medications (Trade) Dose Ordered Sig/Jaye Route PRN Reason Start Time Stop Time Status Last Admin Dose Admin Acetaminophen/ Hydrocodone Bitart ([place] 5/325) 1 tab Q4H PRN ORAL Moderate Pain (Pain Scale 4-6) 09/08/20 07:15 09/15/20 07:14 Calcium Carbonate (Tums) 1,000 mg Q4H PRN ORAL heartburn 09/08/20 14:00 12/07/20 13:59 09/08/20 14:30 Diphenhydramine HCl (Benadryl Cream) 1 applic THREE TIMES A DAY PRN TOPIC Itching 09/08/20 13:30 10/08/20 13:29 09/08/20 20:37 Diphenhydramine HCl (Benadryl) 25 mg Q6H PRN ORAL Itchig 09/08/20 07:15 10/08/20 07:14 Heparin Sodium (Porcine) (Heparin 5000 units/ml) 5,000 units EVERY 12 HOURS SUBQ 09/08/20 13:30 10/23/20 13:29 09/09/20 08:49 Morphine Sulfate (Morphine Sulfate) 4 mg Q3H PRN IVP Severe Pain (Pain Scale 7-10) 09/08/20 12:45 09/15/20 12:44 09/09/20 08:50 Vancomycin HCl ([facility] pharmacy to dose) 1 ea DAILY MISC 09/08/20 09:00 10/08/20 08:59 09/09/20 08:50 Vancomycin HCl 1 gm/Sodium Chloride 275 ml @ 183.708 mls/hr Q8HR@0000,0800,1600 IVPB 09/08/20 08:30 09/13/20 08:29 09/09/20 08:34 Allergies: Coded Allergies: AZITHROMYCIN (Verified Allergy, Unknown, 11/11/17) fever, seizure CELECOXIB (Verified Allergy, Unknown, 11/11/17) Heart palpitations CITRUS AND DERIVATIVES (Verified Allergy, Unknown, 11/11/17) uti ERYTHROMYCIN BASE (Verified Allergy, Unknown, 12/12/17) GABAPENTIN (Verified Allergy, Unknown, 11/11/17) migraine LATEX (Verified Allergy, Unknown, Rash, 11/11/17) PREGABALIN (Verified Allergy, Unknown, 11/11/17) migraine [place] (Verified Allergy, Unknown, 11/11/17) hayfever All Systems: reviewed and negative except above Subjective BILATERAL: Imaging reveals a patent deep venous system bilaterally. There is no evidence of thrombus within the femoral, popliteal or tibial segments. The greater saphenous veins are also within normal limits. Doppler indicates normal spontaneous flow within these segments. BILATERAL: Common femoral artery waveform analysis is within normal limits at rest. Color flow duplex sonography reveals patency of the superficial femoral, popliteal, and tibial arteries, there is no evidence of stenosis or occlusion within these segments. Doppler tibial artery waveform analysis is within normal limits, bilaterally. There is no evidence of significant arterial occlusive disease, bilaterally. Objective Last Vital Signs Date Time Temp Pulse Resp B/P (MAP) Pulse Ox O2 Delivery O2 Flow Rate FiO2 09/09/20 08:00 98.0 103 18 123/70 (87) 94 09/08/20 20:58 Room Air Laboratory Tests Test 09/09/20 06:57 White Blood Count 6.4 K/UL (4.8-10.8) Red Blood Count 3.96 M/UL (4.20-5.40) L Hemoglobin 12.1 G/DL (12.0-16.0) Hematocrit 35.8 % (37.0-47.0) L Mean Corpuscular Volume 90 FL (80-99) Mean Corpuscular Hemoglobin 30.5 PG (27.0-31.0) Mean Corpuscular Hemoglobin Concent 33.7 G/DL (32.0-36.0) Red Cell Distribution Width 12.4 % (11.6-14.8) Platelet Count 191 K/UL (150-450) Mean Platelet Volume 5.1 FL (6.5-10.1) L Neutrophils (%) (Auto) 57.8 % (45.0-75.0) Lymphocytes (%) (Auto) 29.3 % (20.0-45.0) Monocytes (%) (Auto) 8.2 % (1.0-10.0) Eosinophils (%) (Auto) 2.7 % (0.0-3.0) Basophils (%) (Auto) 1.9 % (0.0-2.0) Sodium Level 142 MMOL/L (136-145) Potassium Level 4.1 MMOL/L (3.5-5.1) Chloride Level 109 MMOL/L (98-107) H Carbon Dioxide Level 27 MMOL/L (21-32) Anion Gap 6 mmol/L (5-15) Blood Urea Nitrogen 7 mg/dL (7-18) Creatinine 0.5 MG/DL (0.55-1.30) L Estimat Glomerular Filtration Rate > 60 mL/min (>60) Glucose Level 87 MG/DL (74-106) Hemoglobin A1c 5.1 % (4.3-6.0) Calcium Level 8.9 MG/DL (8.5-10.1) Phosphorus Level 3.4 MG/DL (2.5-4.9) Magnesium Level 2.0 MG/DL (1.8-2.4) Vancomycin Level Trough 12.6 ug/mL (5.0-12.0) H Intake and Output 09/08/20 09/09/20 19:00 07:00 Intake Total 980 ml 635.000 ml Balance 980 ml 635.000 ml Intake Oral 980 ml IV Total 275.000 ml Other 360 ml # Voids 2 Assessment/Plan Assessment/Plan #LLE cellulitis #h/o MRSA infection #h/o asthma #h/p PreDM - admit to inpatient - vanco per pharmacy - ID consulted - monitor cx - pain control - monitor labs - check arterial duplex - check venous duplex - check a1c - topical Adriana Alvarenga M.D. Sep 09, 2020 09:08
[2020-09-09 12:00] VITALS: BP 116/75
--- NOTE | 2020-09-09 12:18 | NUR ---
NURSE NOTES: Seen and evaluated by Wound care nurse and recommended Triamcinolone 0.5 % and knee high NICOLE hose. Spoke to regarding patient and new order received. Order read back and carried out.
--- NOTE | 2020-09-09 12:41 | Diagnostic Imaging Report ---
Indication: Bilateral leg pain Technique: Grayscale duplex images of the bilateral lower extremity arteries Comparison: 11/12/2017 Findings: On the right, Doppler waveforms are triphasic to the distal superficial femoral artery level. Popliteal, posterior tibial, anterior tibial artery waveforms are somewhat ambiguous, appearing borderline monophasic, without only mild decrease in systolic flow velocity. The peroneal artery waveform is triphasic. The appearance is not significant different from the previous study. No focal flow velocity elevation demonstrated. On the left, triphasic waveforms are seen to the distal superficial femoral artery, with ambiguous borderline monophasic waveforms at the popliteal artery and tibial artery levels. The dorsalis pedis artery waveform is suggestively biphasic. There is mild diminution of flow velocity bilaterally. Findings are similar to the previous exam. Impression: Flow definite focal stenosis demonstrated. Borderline monophasic waveforms at the popliteal artery and distally bilaterally, significance uncertain, fluid indicate mild sonographically occult disease just above or below the knee
--- NOTE | 2020-09-09 12:55 | Diagnostic Imaging Report ---
Indication: Bilateral lower extremity and pain Technique: Grayscale and duplex images of the bilateral lower extremity veins Comparison: 11/11/2017 Findings: Bilaterally, grayscale and duplex images demonstrate no evidence of intraluminal thrombus. Normal phasic Doppler waveforms, demonstrating normal augmentation response and no evidence of valvular insufficiency. Greater saphenous vein(s) and tibial veins are patent. Normal compressibility. There is incidental finding of edema of the subcutaneous fat in the bilateral calves. Mildly prominent inguinal lymph nodes are present bilaterally. Impression: Negative for evidence of lower extremity deep venous thrombosis bilaterally
--- NOTE | 2020-09-09 13:03 | NUR ---
CASE MANAGEMENT:REVIEW 09/09/20 SI: BLE CELLULITIS. COPD. DENTAL ABSCESS 98.0 103 18 123/70 94% ON RA IS: IV VANCOMYCIN Q8HRS IV MORPHINE Q3HRS PRN : MED/SURG STATUS 4 EAST
[2020-09-09] MEDS: Triamcinolone 0.5% Cr 15gm TOPIC SCH ×2 (13:53→17:34)
--- NOTE | 2020-09-09 14:29 | Surgery Progress Note ---
Surgery Progress Note Subjective Symptoms: improved, tolerating diet, passing flatus, pain decreased Objective Last 24 Hour Vital Signs Date Time Temp Pulse Resp B/P (MAP) Pulse Ox O2 Delivery O2 Flow Rate FiO2 09/09/20 12:00 98.1 93 18 116/75 (89) 94 09/09/20 09:00 Room Air 09/09/20 08:00 98.0 103 18 123/70 (87) 94 09/09/20 04:30 97.6 81 19 112/58 (76) 93 09/09/20 03:48 97.9 09/09/20 00:06 97.9 82 19 118/79 (92) 94 09/08/20 23:40 97.8 09/08/20 20:58 Room Air 09/08/20 20:29 97.8 87 18 110/66 (81) 96 09/08/20 16:00 97.0 94 20 110/67 (81) 98 94 I&O Intake and Output 09/08/20 09/09/20 19:00 07:00 Intake Total 980 ml 635.000 ml Balance 980 ml 635.000 ml Intake Oral 980 ml IV Total 275.000 ml Other 360 ml # Voids 2 Cardiovascular: RSR Respiratory: clear Abdomen: soft, flat, non-tender, present bowel sounds Extremities: edema, tenderness, no cyanosis, pulses, other Laboratory Tests Test 09/09/20 06:57 White Blood Count 6.4 K/UL (4.8-10.8) Red Blood Count 3.96 M/UL (4.20-5.40) L Hemoglobin 12.1 G/DL (12.0-16.0) Hematocrit 35.8 % (37.0-47.0) L Mean Corpuscular Volume 90 FL (80-99) Mean Corpuscular Hemoglobin 30.5 PG (27.0-31.0) Mean Corpuscular Hemoglobin Concent 33.7 G/DL (32.0-36.0) Red Cell Distribution Width 12.4 % (11.6-14.8) Platelet Count 191 K/UL (150-450) Mean Platelet Volume 5.1 FL (6.5-10.1) L Neutrophils (%) (Auto) 57.8 % (45.0-75.0) Lymphocytes (%) (Auto) 29.3 % (20.0-45.0) Monocytes (%) (Auto) 8.2 % (1.0-10.0) Eosinophils (%) (Auto) 2.7 % (0.0-3.0) Basophils (%) (Auto) 1.9 % (0.0-2.0) Sodium Level 142 MMOL/L (136-145) Potassium Level 4.1 MMOL/L (3.5-5.1) Chloride Level 109 MMOL/L (98-107) H Carbon Dioxide Level 27 MMOL/L (21-32) Anion Gap 6 mmol/L (5-15) Blood Urea Nitrogen 7 mg/dL (7-18) Creatinine 0.5 MG/DL (0.55-1.30) L Estimat Glomerular Filtration Rate > 60 mL/min (>60) Glucose Level 87 MG/DL (74-106) Hemoglobin A1c 5.1 % (4.3-6.0) Calcium Level 8.9 MG/DL (8.5-10.1) Phosphorus Level 3.4 MG/DL (2.5-4.9) Magnesium Level 2.0 MG/DL (1.8-2.4) Vancomycin Level Trough 12.6 ug/mL (5.0-12.0) H Plan Problems: (1) COPD (chronic obstructive pulmonary disease) (2) Dental abscess (3) Diabetes mellitus (4) Edema (5) Atypical chest pain (6) Venous stasis dermatitis (7) Lower extremity cellulitis Assessment & Plan: Is a very pleasant 50-year-old female with history of bilateral lower extremity cellulitis prior on the left side with blistering which is resolved with antibiotics and presented with complaints of bilateral lower extremity cellulitis edema mainly on the right side pitting and cellulitis on the left with erythema on the posterior medial aspect. Patient with history of similar events no injury no trauma states she is not been scratching and does have multiple dry prior eschars from similar events in the past. Venous stasis ulcers identified. Tender on palpation warm but no palpable fluctuance. No abscess identified. No drainage. Recommend antibiotics and local care. Skin cream applied. Keep wounds clean. Keep lower extremities elevated while in bed. Okay to ambulate. Arterial and venous duplex ultrasounds pending. [place] with recommendations. No acute surgical invention planned at this time thank you On the right, Doppler waveforms are triphasic to the distal superficial femoral artery level. Popliteal, posterior tibial, anterior tibial artery waveforms are somewhat ambiguous, appearing borderline monophasic, without only mild decrease in systolic flow velocity. The peroneal artery waveform is triphasic. The appearance is not significant different from the previous study. No focal flow velocity elevation demonstrated. On the left, triphasic waveforms are seen to the distal superficial femoral artery, with ambiguous borderline monophasic waveforms at the popliteal artery and tibial artery levels. The dorsalis pedis artery waveform is suggestively biphasic. There is mild diminution of flow velocity bilaterally. Findings are similar to the previous exam. Impression: Flow definite focal stenosis demonstrated. Borderline monophasic waveforms at the popliteal artery and distally bilaterally, significance uncertain, fluid indicate mild sonographically occult disease just above or below the knee (8) Left leg cellulitis Cuco Richards Sep 09, 2020 14:29
--- NOTE | 2020-09-09 15:39 | Infectious Diseases Prog Note ---
Assessment/Plan Assessment/Plan IMPRESSION: Cellulitis of legs, more severe in the left side. --Step group C in culture Nicotine dependence, history of asthma, history of uterine fibroids, Mitral valve prolapse. RECOMMENDATION: Change vancomycin to Amoxicillin Subjective ROS Limited/Unobtainable: No Respiratory: Reports: no symptoms Gastrointestinal/Abdominal: Reports: no symptoms Genitourinary: Reports: no symptoms Skin: Reports: rash, other - improving Allergies: Coded Allergies: AZITHROMYCIN (Verified Allergy, Unknown, 11/11/17) fever, seizure CELECOXIB (Verified Allergy, Unknown, 11/11/17) Heart palpitations CITRUS AND DERIVATIVES (Verified Allergy, Unknown, 11/11/17) uti ERYTHROMYCIN BASE (Verified Allergy, Unknown, 12/12/17) GABAPENTIN (Verified Allergy, Unknown, 11/11/17) migraine LATEX (Verified Allergy, Unknown, Rash, 11/11/17) PREGABALIN (Verified Allergy, Unknown, 11/11/17) migraine [place] Tree (Verified Allergy, Unknown, 11/11/17) hayfever Objective Last 24 Hour Vital Signs Date Time Temp Pulse Resp B/P (MAP) Pulse Ox O2 Delivery O2 Flow Rate FiO2 09/09/20 12:00 98.1 93 18 116/75 (89) 94 09/09/20 09:00 Room Air 09/09/20 08:00 98.0 103 18 123/70 (87) 94 09/09/20 04:30 97.6 81 19 112/58 (76) 93 09/09/20 03:48 97.9 09/09/20 00:06 97.9 82 19 118/79 (92) 94 09/08/20 23:40 97.8 09/08/20 20:58 Room Air 09/08/20 20:29 97.8 87 18 110/66 (81) 96 09/08/20 16:00 97.0 94 20 110/67 (81) 98 94 Height (Feet): 5 Height (Inches): 6.00 Weight (Pounds): 199 HEENT: mucous membranes moist Respiratory/Chest: lungs clear Cardiovascular: normal rate Abdomen: soft, non tender Extremities: other - edema of legs Skin: rash, other - erythema of legs Microbiology Date/Time Source Procedure Growth Status 09/07/20 22:15 Other Gram Stain - Final Resulted 09/07/20 22:15 Wound Culture - Preliminary Streptococcus Group C Resulted Laboratory Tests Test 09/09/20 06:57 White Blood Count 6.4 K/UL (4.8-10.8) Red Blood Count 3.96 M/UL (4.20-5.40) L Hemoglobin 12.1 G/DL (12.0-16.0) Hematocrit 35.8 % (37.0-47.0) L Mean Corpuscular Volume 90 FL (80-99) Mean Corpuscular Hemoglobin 30.5 PG (27.0-31.0) Mean Corpuscular Hemoglobin Concent 33.7 G/DL (32.0-36.0) Red Cell Distribution Width 12.4 % (11.6-14.8) Platelet Count 191 K/UL (150-450) Mean Platelet Volume 5.1 FL (6.5-10.1) L Neutrophils (%) (Auto) 57.8 % (45.0-75.0) Lymphocytes (%) (Auto) 29.3 % (20.0-45.0) Monocytes (%) (Auto) 8.2 % (1.0-10.0) Eosinophils (%) (Auto) 2.7 % (0.0-3.0) Basophils (%) (Auto) 1.9 % (0.0-2.0) Sodium Level 142 MMOL/L (136-145) Potassium Level 4.1 MMOL/L (3.5-5.1) Chloride Level 109 MMOL/L (98-107) H Carbon Dioxide Level 27 MMOL/L (21-32) Anion Gap 6 mmol/L (5-15) Blood Urea Nitrogen 7 mg/dL (7-18) Creatinine 0.5 MG/DL (0.55-1.30) L Estimat Glomerular Filtration Rate > 60 mL/min (>60) Glucose Level 87 MG/DL (74-106) Hemoglobin A1c 5.1 % (4.3-6.0) Calcium Level 8.9 MG/DL (8.5-10.1) Phosphorus Level 3.4 MG/DL (2.5-4.9) Magnesium Level 2.0 MG/DL (1.8-2.4) Vancomycin Level Trough 12.6 ug/mL (5.0-12.0) H Current Medications Medications (Trade) Dose Ordered Sig/Jaye Route PRN Reason Start Time Stop Time Status Last Admin Dose Admin Acetaminophen/ Hydrocodone Bitart ([place] 5/325) 1 tab Q4H PRN ORAL Moderate Pain (Pain Scale 4-6) 09/08/20 07:15 09/15/20 07:14 Calcium Carbonate (Tums) 1,000 mg Q4H PRN ORAL heartburn 09/08/20 14:00 12/07/20 13:59 09/08/20 14:30 Diphenhydramine HCl (Benadryl Cream) 1 applic THREE TIMES A DAY PRN TOPIC Itching 09/08/20 13:30 10/08/20 13:29 09/08/20 20:37 Diphenhydramine HCl (Benadryl) 25 mg Q6H PRN ORAL Itchig 09/08/20 07:15 10/08/20 07:14 Heparin Sodium (Porcine) (Heparin 5000 units/ml) 5,000 units EVERY 12 HOURS SUBQ 09/08/20 13:30 10/23/20 13:29 09/09/20 08:49 Morphine Sulfate (Morphine Sulfate) 4 mg Q3H PRN IVP Severe Pain (Pain Scale 7-10) 09/08/20 12:45 09/15/20 12:44 09/09/20 08:50 Triamcinolone Acetonide (Kenalog 0.5% Cr) 1 applic THREE TIMES A DAY TOPIC 09/09/20 13:30 12/08/20 13:29 09/09/20 13:53 Vancomycin HCl (Vanco pharmacy to dose) 1 ea DAILY MISC 09/08/20 09:00 10/08/20 08:59 09/09/20 08:50 Vancomycin HCl 1 gm/Sodium Chloride 275 ml @ 183.708 mls/hr Q8HR@0000,0800,1600 IVPB 09/08/20 08:30 09/13/20 08:29 09/09/20 08:34 Willie Mello MD Sep 09, 2020 15:39
[2020-09-09 16:00] VITALS: BP 116/71
--- NOTE | 2020-09-09 16:12 | NUR ---
INSURANCE CLINICALS/REVIEW FAXED TO [facility] [phone]
[2020-09-09] MEDS: HYDROcodone/Acetamin 5/325 tab ORAL PRN ×2 (17:34→21:32)
--- NOTE | 2020-09-09 18:36 | NUR ---
NURSE NOTES:WOUND CARE NOTES:Pt presented on admission with Erythema, swelling L lower extremity. Thickened skin with few clusters of ulcers in close proximity noted to L Ojeda. Pt stated affected area very itchy at times. Haemosiderin noted to L Lower ext without erythema or ulcerations. Pt educated on skin care to minimize skin breakdown. Encouraged to moisturize skin lower extremities. Encouraged to elevate lower extremities when sitting , or when in bed . Tx.Plan: Triamcinolone 0.5% cream to L lower ext Twice Daily per . Roberto Stockings Daily to be worn during daytime and remove at Bedtime. Elevate lower extremities while sitting and when in bed.
--- NOTE | 2020-09-09 19:00 | NUR ---
NURSE HAND-OFF: Important Events on Shift:New antibiotic medication and cream ordered Patient Status: Stable Diet: Regular Pending Orders: N/A Pending Results/Labs:N/A Pending MD notification:N/A Latest Vital Signs: Temperature 98.0 , Pulse 91 , B/P 116 /71 , Respiratory Rate 18 , O2 SAT 95 , Room Air, O2 Flow Rate . Vital Sign Comment: Stable Latest Whitten Fall Score: 35 Fall Risk: Medium Risk Safety Measures: Call light Within Reach, Bed Alarm Zone 1, Side Rails Side Rails x2, Bed position Low and Locked. Fall Precautions: Yellow Socks Door Sign Patient Fall Education Report given to Pily QUESADA. patient in stable condition.
--- NOTE | 2020-09-09 19:54 | NUR ---
NURSE NOTES: Received patient awake, alert, verbal, resting in bed, both lower extremities elevated.
[2020-09-09 20:00] VITALS: BP 114/71
[2020-09-10] VITALS: BP 118/75
[2020-09-10 04:00] VITALS: BP 130/63
[2020-09-10] MEDS: DiphenhydrAMINE & Zinc 28g Cream TOPIC PRN (05:37)
[2020-09-10] MEDS: HYDROcodone/Acetamin 5/325 tab ORAL PRN (05:38)
--- NOTE | 2020-09-10 06:40 | NUR ---
NURSE HAND-OFF: Important Events on Shift:[]Improving condition Patient Status: []Stable Diet: []Regular Pending Orders: [] Pending Results/Labs:[] Pending MD notification:[] Latest Vital Signs: Temperature 96.8 , Pulse 78 , B/P 130 /63 , Respiratory Rate 20 , O2 SAT 96 , Room Air, O2 Flow Rate . Vital Sign Comment: [] Latest Whitten Fall Score: 35 Fall Risk: Medium Risk Safety Measures: Call light Within Reach, Bed Alarm Zone 1, Side Rails Side Rails x2, Bed position Low and Locked. Fall Precautions: Yellow Socks Door Sign Patient Fall Education Report given to [].
--- NOTE | 2020-09-10 07:50 | NUR ---
NURSE NOTES: Patient awake and alert and oriented,respirations unlabored.patient sitting up in bed and eating breakfast.Ri8ght hand saline intact.Call light within reach.
[2020-09-10 08:00] VITALS: BP 113/63
--- NOTE | 2020-09-10 08:26 | NUR ---
CASE MANAGEMENT:REVIEW 09/10/20 SI: BLE CELLULITIS. COPD. DENTAL ABSCESS 96.8 78 20 130/63 96% ON RA IS: AMOXICILLIN PO Q8HR KENALOG TOPIC TID HEPARIN SQ Q12 BENADRYL CREAM TID PRN NORCO PO Q4HRS PRN : MED/SURG STATUS 4 EAST DCP: FROM HOME PLAN: KNEE HIGH NICOLE VANEGAS
[2020-09-10] MEDS: Heparin 5000 units/ml inj SUBQ SCH (09:19)
--- NOTE | 2020-09-10 09:19 | Internal Med Progress Note ---
Subjective Physician Name Adriana Castillo Attending Physician Adriana Castillo M.D. Current Medications Medications (Trade) Dose Ordered Sig/Jaye Route PRN Reason Start Time Stop Time Status Last Admin Dose Admin Acetaminophen/ Hydrocodone Bitart ([place] 5/325) 1 tab Q4H PRN ORAL Moderate Pain (Pain Scale 4-6) 09/08/20 07:15 09/15/20 07:14 09/10/20 05:38 Amoxicillin (Amoxil) 500 mg EVERY 8 HOURS ORAL 09/09/20 22:00 09/16/20 21:59 09/10/20 05:37 Calcium Carbonate (Tums) 1,000 mg Q4H PRN ORAL heartburn 09/08/20 14:00 12/07/20 13:59 09/08/20 14:30 Diphenhydramine HCl (Benadryl Cream) 1 applic THREE TIMES A DAY PRN TOPIC Itching 09/08/20 13:30 10/08/20 13:29 09/10/20 05:37 Diphenhydramine HCl (Benadryl) 25 mg Q6H PRN ORAL Itchig 09/08/20 07:15 10/08/20 07:14 Heparin Sodium (Porcine) (Heparin 5000 units/ml) 5,000 units EVERY 12 HOURS SUBQ 09/08/20 13:30 10/23/20 13:29 09/09/20 21:31 Morphine Sulfate (Morphine Sulfate) 4 mg Q3H PRN IVP Severe Pain (Pain Scale 7-10) 09/08/20 12:45 09/15/20 12:44 09/09/20 08:50 Triamcinolone Acetonide (Kenalog 0.5% Cr) 1 applic THREE TIMES A DAY TOPIC 09/09/20 13:30 12/08/20 13:29 09/09/20 17:34 Allergies: Coded Allergies: AZITHROMYCIN (Verified Allergy, Unknown, 11/11/17) fever, seizure CELECOXIB (Verified Allergy, Unknown, 11/11/17) Heart palpitations CITRUS AND DERIVATIVES (Verified Allergy, Unknown, 11/11/17) uti ERYTHROMYCIN BASE (Verified Allergy, Unknown, 12/12/17) GABAPENTIN (Verified Allergy, Unknown, 11/11/17) migraine LATEX (Verified Allergy, Unknown, Rash, 11/11/17) PREGABALIN (Verified Allergy, Unknown, 11/11/17) migraine [place] Tree (Verified Allergy, Unknown, 11/11/17) hayfever Subjective BILATERAL: Imaging reveals a patent deep venous system bilaterally. There is no evidence of thrombus within the femoral, popliteal or tibial segments. The greater saphenous veins are also within normal limits. Doppler indicates normal spontaneous flow within these segments. BILATERAL: Common femoral artery waveform analysis is within normal limits at rest. Color flow duplex sonography reveals patency of the superficial femoral, popliteal, and tibial arteries, there is no evidence of stenosis or occlusion within these segments. Doppler tibial artery waveform analysis is within normal limits, bilaterally. There is no evidence of significant arterial occlusive disease, bilaterally. Objective Last Vital Signs Date Time Temp Pulse Resp B/P (MAP) Pulse Ox O2 Delivery O2 Flow Rate FiO2 09/10/20 08:00 97.1 97 19 113/63 (80) 95 09/09/20 20:12 Room Air Microbiology Date/Time Source Procedure Growth Status 09/07/20 22:45 Blood Peripheral Blood Culture - Preliminary NO GROWTH AFTER 24 HOURS Resulted 09/07/20 22:30 Blood Peripheral Blood Culture - Preliminary NO GROWTH AFTER 24 HOURS Resulted 09/07/20 22:15 Other Gram Stain - Final Resulted 09/07/20 22:15 Wound Culture - Preliminary Streptococcus Group C Resulted Intake and Output 09/09/20 09/10/20 19:00 07:00 Intake Total 1080 ml 480 ml Balance 1080 ml 480 ml Intake Oral 1080 ml 480 ml # Voids 4 3 Assessment/Plan Assessment/Plan #LLE cellulitis #h/o MRSA infection #h/o asthma #h/p PreDM - admit to inpatient - vanco per pharmacy - ID consulted - monitor cx - pain control - monitor labs - check arterial duplex - check venous duplex - check a1c - topical benadryl Adriana Castillo M.D. Sep 10, 2020 09:19
[2020-09-10] MEDS: Triamcinolone 0.5% Cr 15gm TOPIC SCH (09:20)
--- NOTE | 2020-09-10 11:00 | NUR ---
NURSE NOTES: Patient awake and alert,discharge instructions given IV removed and ID hospital band removed.Patient has personal belongings. Patient has prescription for discharge medication.Patient will take lyft home.Patent accompany down stairs.
--- NOTE | 2020-09-10 11:57 | NUR ---
INSURANCE DC INSTRUCTIONS/CLINICALS/REVIEW FAXED TO [facility] [phone]
--- NOTE | 2020-09-11 16:30 | Discharge Summary ---
Discharge Summary Discharge Summary _ DATE OF ADMISSION: 09/07/2020 DATE OF DISCHARGE: 09/10/2020 DISCHARGED BY: Dr. Castillo REASON FOR ADMISSION: 50 years old female with a past medical history of asthma , presented with chief complaint of lower extremity swelling and redness for the last 2 weeks. Patient reported this as a recurrent problem. Patient reported that legs started draining few days ago. Patient was admitted few years ago and grew out MRSA. She denied fever and chills. She reported pain , throbbing and burning in nature. She denied any trauma or injury to her legs. Patient subsequently admitted with lower extremity cellulitis for further management. CONSULTANTS: pulmonary Dr. Rodríguez ID specialist Dr. Willie Mello surgery Dr. Fontana HOSPITAL COURSE: Patient admitted to medical surgical floor and started on empiric antibiotic as per ID specialist recommendation. Venous duplex bilateral lower extremity revealed no evidence of acute DVT. Arterial duplex revealed borderline monophasic waveforms at the popliteal artery and distally bilaterally, significance uncertain, fluid indicated mild sonographically occult disease just above or below the knee. Wound culture revealed strep group C and gram-positive cocci . Blood cultures were negative. Antibiotics changed based on culture as per ID specialist recommendations. . Local wound care provided as per surgeon recommendation Pulse oximetry remained stable on room air . No evidence of asthma exacerbation. Patient was educated on smoking cessation. DVT prophylaxis provided. Pain management was addressed. Supportive care provided. Patient clinically stabilized and was ready for discharge home on oral antibiotic as per ID specialist recommendation. FINAL DIAGNOSES: Lower extremity cellulitis , worse on the left ( culture with Strep Group C) Venous status dermatitis Nicotine dependency History of asthma DISCHARGE MEDICATIONS: See Medication Reconciliation list. DISCHARGE INSTRUCTIONS: Patient was discharged home. Follow-up with a primary care provider in 1 week. I have been assigned to dictate discharge summary for this account. I was not involved in the patient's management. Belen Carlos NP Sep 11, 2020 16:30
--- NOTE | 2020-09-12 09:32 | NUR ---
INSURANCE DC SUMMARY FAXED TO [facility] [phone]
== END 2020-09-10 11:00 | disposition home or self-care (01) | DRG 383 ==
LOC: EMR 22:14 → 4E 22:50 → EDBEDREQ 23:38
DX: L03.116 Cellulitis of left lower limb (principal); I87.2 Venous insufficiency (chronic) (peripheral); L03.115 Cellulitis of right lower limb; B95.4 Other streptococcus as the cause of diseases classified elsewhere; J45.909 Unspecified asthma, uncomplicated; E11.9 Type 2 diabetes mellitus without complications; Z88.6 Allergy status to analgesic agent; Z88.3 Allergy status to other anti-infective agents; Z88.8 Allergy status to other drugs, medicaments and biological substances; Z86.14 Personal history of Methicillin resistant Staphylococcus aureus infection; F17.200 Nicotine dependence, unspecified, uncomplicated; I34.1 Nonrheumatic mitral (valve) prolapse
CPT/HCPCS: 36415; 80048; 80202; 83036; 83735; 84100; 85025; 87040; 87070; 87181; 87205; 93925; 93970; 96361; 96365; 96367; 96375; 99285; J7030